=== PATIENT | male | born 1970 | race Caucasian/White ===

== ENCOUNTER 2020-11-30 12:05 | Outpatient (CLI) | payer OTHER, SELFPAY ==
--- NOTE | ~2020-11-30 | XR_ITS ---
EXAMINATION: XR foot RT 2V DATE: 11/30/2020 12:19 INDICATION: Other specified soft tissue disorders. TECHNIQUE: 2 views of right foot were obtained. COMPARISON: None. FINDINGS: Bone alignment is normal. No fracture. There is mild osteoarthritis of first metatarsophala ngeal joint, first interphalangeal joint, and some of the midfoot joints. IMPRESSION: 1. Mild polyarticular osteoarthritis. Reviewed, dictated and finalized at location A.
== END 2020-11-30 12:06 | disposition home or self-care (01) ==
PROVIDERS: PCP Internal Medicine; Visit Provider Nurse Practitioner
DX: M19.071 Primary osteoarthritis, right ankle and foot (principal)
CPT/HCPCS: 73620

== ENCOUNTER 2020-12-31 11:36 | Outpatient (CLI) | payer OTHER, SELFPAY ==
--- NOTE | ~2020-12-31 | US_ITS ---
EXAMINATION: US venous doppler [facility] DATE: 12/31/2020 12:06 INDICATION: Right lower limb swelling. TECHNIQUE: Grayscale ultrasound images without and with compression and Doppler ultrasound images of the bilateral lower extremity veins were obtained. COMPARISON: Ultrasound 04/06/2015 FINDINGS: The visualized portions of right common femoral vein, profunda (deep) femoral vein, femoral vein, pop liteal vein, peroneal veins, posterior tibial veins, and greater saphenous vein outflow are patent. The visualized portions of left common femoral vein, profunda femoral vein, femoral vein, popliteal v ein, peroneal veins, posterior tibial veins, and greater saphenous vein outflow are patent. IMPRESSION: 1. No deep venous thrombosis. Reviewed, dictated and finalized at location A.
== END 2020-12-31 11:37 | disposition home or self-care (01) ==
PROVIDERS: PCP Internal Medicine; Visit Provider Nurse Practitioner
DX: R60.0 Localized edema (principal)
CPT/HCPCS: 93970

== ENCOUNTER 2021-01-05 13:27 | Outpatient (CLI) | payer OTHER, SELFPAY ==
--- NOTE | 2021-01-05 13:36 | ECHO_ITS ---
Patient Info Name: Leonel Vanessa Age: 50 years : 1970 Gender: Male Ht: 72 in Wt: 327 lbs BSA: 2.81 m2 HR: 80 bpm BP: 156 / 91 mmHg Technical Quality: Good Exam Date: 01/05/2021 1:47 PM Exam Location: [facility] Pulmonary Patient Status: Outpatient Admit Date: 01/05/2021 Staff Ordering Physician: Corrie Zamarripa NP Remelt Worker: DEVANG Attending Provider: Corrie Zamarripa NP Referring Physician: Dallin SUTHERLAND; Exam Type: CA echo doppler color flow Study Info Indications R60.0 - Localized edema Complete two-dimensional, color flow and Doppler transthoracic echocardiogram is performed. Summary 1. Complete two-dimensional, color flow and Doppler transthoracic echocardiogram is performed. 2. Left ventricular chamber dimension is normal. 3. Left ventricular systolic function is normal, estimated at 55-60%. 4. The left ventricular diastolic function is normal. 5. E/e' 7 is not elevated. 6. No pulmonary hypertension, estimated pulmonary arterial systolic pressure is 21 mmHg. Left Ventricle E/e' 7 is not elevated. Left ventricular chamber dimension is normal. Left ventricular systolic function is normal, estimated at 55-60%. The left ventricular diastolic function is normal. Right Ventricle Right ventricular chamber dimension is normal. Right ventricular systolic function is normal. Left Atria Left atrial chamber dimension is normal. Right Atria Right atrial chamber dimension is normal. Aortic Valve The aortic valve is trileaflet. There is no aortic valve stenosis. There is no aortic valve regurgitation. Pulmonic Valve There is no pulmonic regurgitation. Mitral Valve There is no mitral valve stenosis. There is no mitral valve regurgitation. Tricuspid Valve There is no tricuspid valve regurgitation. No pulmonary hypertension, estimated pulmonary arterial systolic pressure is 21 mmHg. Pericardium/Pleural There is no pericardial effusion. Inferior Vena Cava Normal inferior vena cava with >50% collapse upon inspiration consistent with normal right atrial pressure, 5 mmHg. Aorta The aortic root size at the sinus of Valsalva is normal. Left Ventricular Outflow Tract Name Value Normal LVOT 2D LVOT Diameter 2.3 cm LVOT Doppler LVOT Peak Gradient 4 mmHg LVOT Mean Gradient 2 mmHg LVOT VTI 22 cm LVOT VTI/AV VTI Ratio 0.8 LVOT Stroke Volume 92 ml LVOT CO 17.9 l/min LVOT CI 6.4 l/min/m2 Pulmonic Valve Name Value Normal PV Doppler PV Peak Gradient 2 mmHg Mitral Valve Name Value Normal
== END 2021-01-05 13:28 | disposition home or self-care (01) ==
PROVIDERS: PCP Internal Medicine; Visit Provider Nurse Practitioner
DX: I45.10 Unspecified right bundle-branch block (principal); R60.0 Localized edema
CPT/HCPCS: 93306

== ENCOUNTER 2021-12-09 01:25 | Day surgery (SDC) | payer OTHER, SELFPAY ==
[2021-11-19 14:31] VITALS: BMI 46.8
[2021-12-09 09:03] VITALS: BP 145/81; PULSE 103; RESP 20; TEMP 36.4; O2SAT 96
[2021-12-09] MEDS: LACTATED RINGERS 1,000 ML 150 ML IV CONT (09:14)
--- NOTE | 2021-12-09 09:31 | PM.HPGS ---
History of Present Illness History of Present Illness Consent: Risks, benefits, and alternatives have been discussed and questions answered. Patient agrees to proceed with procedure. Chief complaint: hx of colon polyps Narrative: Leonel Vanessa is a 51 year old male Referred for colon cancer screening. He had 2 polyps removed about 5 years ago. Review of Systems Review of Systems: All systems reviewed & are unremarkable except as noted in HPI and below PMFSH Past Medical History Medical History Cholecystitis Depression Depression with anxiety Family history of diabetes mellitus GERD (gastroesophageal reflux disease) Heart murmur SHAY (obstructive sleep apnea) Other testicular hypofunction TMJ click Vitamin D deficiency Surgical History Surgical History History of cholecystectomy Family History Family History Sibling Diabetes mellitus Mother Cerebrovascular accident Father Family history of lung cancer Social History Social History Smoking packs per day: 1 Smoking cigarettes per day: 20.0 Years smoked: 3 Smoking pack-years: 3.00 Smoking status: Former smoker Tobacco type: cigarettes Second hand tobacco smoke exposure: Yes Smoking end date: 07/31/09 Alcohol intake: current Drinks per week: 21 Alcohol use details: 3-4 beers daily Substance use: never Substance use type: does not use Other substance usage details: edibles occasionally to help with pain Living arrangements: with family Spiritual care concerns: No Meds Home Medications and Allergies Home Medications Medication Instructions Recorded Confirmed Type cholecalciferol (vitamin D3) 25 1,000 unit PO DAILY 06/11/19 11/19/21 History mcg (1,000 unit) capsule lactobacillus combination no.8 3 3,000 mmu cells PO DAILY 06/11/19 11/19/21 History billion cell capsule cctmeudt-consenoj-dozxo acid 400 1 tablet PO DAILY tablet 06/11/19 11/19/21 History mcg-vit K 20 mcg-lycop 300 mcg tablet omega-3 fatty acids 1,000 mg 1,000 mg PO DAILY 06/11/19 11/19/21 History capsule potassium gluconate 595 mg (99 mg) 595 mg PO DAILY 06/11/19 11/19/21 History tablet famotidine 20 mg tablet 20 mg PO PRN PRN 11/16/20 11/19/21 History polyethylene glycol 3350 17 gram 17 g PO PRN PRN 11/16/20 11/19/21 History oral powder packet bupropion HCl 150 mg tablet,12 hr 150 mg PO BID 90 Days #180 tablet 11/04/21 11/19/21 Rx sustained-release semaglutide 0.25 mg SUBCUT WEEKLY #1.5 ml 11/18/21 11/19/21 Rx semaglutide 1 mg/dose (4 mg/3 mL) 1 mg SUBCUT WEEKLY #3 ml 11/18/21 11/19/21 Rx subcutaneous pen injector semaglutide 2 mg/dose (8 mg/3 mL) 2 mg SUBCUT WEEKLY #3 ml 11/18/21 11/19/21 Rx subcutaneous pen injector sertraline 25 mg tablet 25 mg PO DAILY #30 tablet 11/18/21 11/19/21 Rx Allergies Allergy/AdvReac Type Severity Reaction Status Date / Time No Known Allergies Allergy Verified 12/09/21 09:01 Vital Signs Vital Signs - 24 hr 12/09/21 09:03 Temperature 36.4 C L Pulse Rate 103 H Respiratory Rate 20 Blood Pressure 145/81 H Pulse Oximetry 96 Exam Resp: Auscultation: clear to auscultation bilaterally Cardio: Rate: regular rate Rhythm: regular rhythm GI: GI Palp: Yes Soft to palpation and No Tenderness to palpation present (GI) Assessment and Plan Assessment and plan (1) Colon cancer screening: Code(s): Z12.11 - Encounter for screening for malignant neoplasm of colon Status: Acute Assessment and Plan: Colonoscopy with possible biopsy or polypectomy or cautery or injection of substances.
--- NOTE | 2021-12-09 09:55 | WPDANESEPPF ---
Anes - Initial Pre Proc Eval Procedure: Operation Date: 12/09/21 10:15 Proposed Procedures p Screening Colonoscopy - Yassine Billingsley MD Date/Time: 12/09/21 09:55 Surgeon: Yassine Billingsley MD Pre Op Diagnosis: hx of colon polyps Patient Data Age: 51 Gender: M Height: 1.83 m Weight: 151.4 kg Last Vital Signs Temp 97.5 F L 12/09/21 09:03 Pulse 103 H 12/09/21 09:03 Resp 20 12/09/21 09:03 BP 145/81 H 12/09/21 09:03 Pulse Ox 96 12/09/21 09:03 Allergies Allergy/AdvReac Type Severity Reaction Status Date / Time No Known Allergies Allergy Verified 12/09/21 09:01 Home Medications Medication Instructions Recorded Confirmed Type cholecalciferol (vitamin D3) 25 1,000 unit PO DAILY 06/11/19 11/19/21 History mcg (1,000 unit) capsule lactobacillus combination no.8 3 3,000 mmu cells PO DAILY 06/11/19 11/19/21 History billion cell capsule vojgykya-wqluqpnk-rzuiy acid 400 1 tablet PO DAILY tablet 06/11/19 11/19/21 History mcg-vit K 20 mcg-lycop 300 mcg tablet omega-3 fatty acids 1,000 mg 1,000 mg PO DAILY 06/11/19 11/19/21 History capsule potassium gluconate 595 mg (99 mg) 595 mg PO DAILY 06/11/19 11/19/21 History tablet famotidine 20 mg tablet 20 mg PO PRN PRN 11/16/20 11/19/21 History polyethylene glycol 3350 17 gram 17 g PO PRN PRN 11/16/20 11/19/21 History oral powder packet bupropion HCl 150 mg tablet,12 hr 150 mg PO BID 90 Days #180 tablet 11/04/21 11/19/21 Rx sustained-release semaglutide 0.25 mg SUBCUT WEEKLY #1.5 ml 11/18/21 11/19/21 Rx semaglutide 1 mg/dose (4 mg/3 mL) 1 mg SUBCUT WEEKLY #3 ml 11/18/21 11/19/21 Rx subcutaneous pen injector semaglutide 2 mg/dose (8 mg/3 mL) 2 mg SUBCUT WEEKLY #3 ml 11/18/21 11/19/21 Rx subcutaneous pen injector sertraline 25 mg tablet 25 mg PO DAILY #30 tablet 11/18/21 11/19/21 Rx Patient hx anesthesia problems: none Family hx anesthesia problems: none Results Review: All pre-operative results and documents have been reviewed as part of the pre-operative evaluation. [facility] Past Medical History Medical History Cholecystitis Depression Depression with anxiety Family history of diabetes mellitus GERD (gastroesophageal reflux disease) Heart murmur SHAY (obstructive sleep apnea) Other testicular hypofunction TMJ click Vitamin D deficiency Surgical History Surgical History History of cholecystectomy Family History Family History Sibling Diabetes mellitus Mother Cerebrovascular accident Father Family history of lung cancer Social History Social History Smoking packs per day: 1 Smoking cigarettes per day: 20.0 Years smoked: 3 Smoking pack-years: 3.00 Smoking status: Former smoker Tobacco type: cigarettes Second hand tobacco smoke exposure: Yes Smoking end date: 07/31/09 Alcohol intake: current Drinks per week: 21 Alcohol use details: 3-4 beers daily Substance use: never Substance use type: does not use Other substance usage details: edibles occasionally to help with pain Living arrangements: with family Spiritual care concerns: No Anes - Eval Final PreProcedure Day of Procedure 12/09/21 09:55 Patient weight: morbidly obese Heart: regular rate and rhythm Lungs: clear to auscultation Airway: Mallampati scale class III Neurological: alert and oriented Last oral intake: >/= 8 hours ASA classification: III Emergent: no Anesthetic plan: proceed Anesthesia type and monitoring: general GIVS and standard monitoring Results Review: All pre-operative results and documents have been reviewed as part of the pre-operative evaluation. Informed Consent: The patient's anesthetic plan and its attendant risks and benefits were discussed with the patient/family/POA. [facility]
[2021-12-09 10:21] VITALS: BP 130/80; PULSE 93; RESP 20; O2SAT 98
[2021-12-09 10:31] VITALS: BP 137/79; PULSE 88; RESP 18; O2SAT 98
[2021-12-09 10:41] VITALS: BP 137/85; PULSE 84; RESP 16; O2SAT 98
== END 2021-12-09 10:51 | disposition home or self-care (01) ==
PROVIDERS: PCP Internal Medicine; Visit Provider Internal Medicine Gastroenterology
PROC: 0DJD8ZZ Inspection of Lower Intestinal Tract, Via Natural or Artificial Opening Endoscopic (ICD-10-PCS; CPT 45378; principal; 2021-12-09 10:15)
DX: Z12.11 Encounter for screening for malignant neoplasm of colon (principal); D12.5 Benign neoplasm of sigmoid colon; D12.2 Benign neoplasm of ascending colon; K63.5 Polyp of colon; F41.8 Other specified anxiety disorders; K21.9 Gastro-esophageal reflux disease without esophagitis; G47.33 Obstructive sleep apnea (adult) (pediatric); E55.9 Vitamin D deficiency, unspecified; Z87.891 Personal history of nicotine dependence; E66.01 Morbid (severe) obesity due to excess calories; Z68.42 Body mass index [BMI] 45.0-49.9, adult
CPT/HCPCS: 45380; 88305; J2704; J7120

== ENCOUNTER 2023-01-06 08:40 | Outpatient (CLI) | payer OTHER, SELFPAY ==
[2023-01-06 12:10] LABS: Basophils Absolute Auto 0.1 K/mm3 (0.0-0.1); Basophils Percent Auto 0.7 % (0.2-1.2); Eosinophils Absolute Auto 0.1 K/mm3 (0-0.3); Eosinophils Percent Auto 1.6 % (0-4.4); Hematocrit 45.6 % (42.0-52.0); Hemoglobin 14.8 g/dL (14.0-18.0); Immature Granulocyte Absolute 0.02 K/mm3 (0.00-0.031); Immature Granulocyte Percent A 0.3 % (0-0.5); Lymphocytes Absolute Auto 1.77 K/mm3 (0.9-3.2); Lymphocytes Percent Auto 23.9 % (18.3-44.2); Mean Corpuscular HGB Conc 32.5 g/dl (32-36); Mean Corpuscular Hemoglobin 30.5 pg (26-34); Mean Platelet Volume 10.3 fl (7.4-10.4); Monocytes Absolute Auto 0.6 K/mm3 (0.1-0.6); Monocytes Percent Auto 8.4 % (2.6-8.5); Neutrophils Absolute Auto 4.8 K/mm3 (1.3-6.7); Neutrophils Percent Auto 65.1 % (45.5-73.1); Platelet Count Result 250 k/mm3 (150-375); Red Blood Count 4.85 M/mm3 (4.6-6.20); Red Cell Distribution Width 13.5 % (11.5-14.5); White Blood Count 7.4 K/mm3 (4.5-10.0)
[2023-01-06 12:35] LABS: Alanine Aminotransferase 121 U/L (6-50); Albumin Level 4.5 g/dL (3.5-5.1); Alkaline Phosphatase 77 U/L (38-126); Anion Gap 7 mmol/L (8-16); Aspartate Amino Transferase 110 U/L (17-59); Bilirubin,Total 0.6 mg/dL (0.2-1.3); Blood Urea Nitrogen 17 mg/dL (9-20); Calcium 8.9 mg/dL (8.4-10.2); Carbon Dioxide 30 mmol/L (22-30); Chloride 102 mmol/L (98-107); Cholesterol 160 mg/dL (0-200); Estimated Glomerular Filt Rate > 60; Glucose 95 mg/dL (65-110); HDL Direct 51 mg/dL; Potassium 4.7 mmol/L (3.4-5.0); Sodium 139 mmol/L (137-145); Triglycerides 98 mg/dL (<150)
[2023-01-06 12:46] LABS: LDL Cholesterol Direct 82 mg/dL
[2023-01-06 12:56] LABS: Prostate Specific Antigen 0.7 ng/mL (< OR = 4.0)
[2023-01-06 13:23] LABS: Hemoglobin A1C 5.4 % (<5.7)
== END 2023-01-06 08:41 | disposition home or self-care (01) ==
LOC: ANHGOSHLAB 08:40
PROVIDERS: PCP Internal Medicine; Visit Provider Nurse Practitioner
DX: Z12.5 Encounter for screening for malignant neoplasm of prostate (principal); Z13.220 Encounter for screening for lipoid disorders; Z13.29 Encounter for screening for other suspected endocrine disorder; Z83.3 Family history of diabetes mellitus
CPT/HCPCS: 36415; 80053; 80061; 83036; 84153; 85025; G0103

== ENCOUNTER 2023-01-10 15:12 | Outpatient (CLI) | payer OTHER, SELFPAY ==
[2023-01-10 17:09] LABS: Iron 89 ug/dL (49-181)
[2023-01-10 17:23] LABS: Percent Iron Saturation 24 % (20-50)
[2023-01-10 17:36] LABS: Hepatitis B Surface Antigen Negative (Negative)
[2023-01-10 17:40] LABS: HIV 1/2 Ab P24 Ag Result Negative (Negative)
[2023-01-10 17:53] LABS: Hepatitis C Virus Antibody Negative (Negative)
== END 2023-01-10 15:13 | disposition home or self-care (01) ==
LOC: ANHGOSHLAB 15:14
PROVIDERS: PCP Internal Medicine; Visit Provider Nurse Practitioner
DX: R74.01 Elevation of levels of liver transaminase levels (principal)
CPT/HCPCS: 36415; 83540; 83550; 84443; 86703; 86803; 87340; G0432

== ENCOUNTER 2023-02-02 15:27 | Outpatient (CLI) | payer OTHER, SELFPAY ==
[2023-02-05 17:31] LABS: Immunoglobulin A 235 mg/dL (47-310); TTG IGA AB <1.0 U/mL (<15.0)
== END 2023-02-02 15:28 | disposition home or self-care (01) ==
LOC: ANHGOSHLAB 15:28
PROVIDERS: PCP Internal Medicine; Visit Provider Nurse Practitioner
DX: R74.01 Elevation of levels of liver transaminase levels (principal)
CPT/HCPCS: 36415; 82784; 86364

== ENCOUNTER 2023-02-09 09:09 | Outpatient (CLI) | payer OTHER, SELFPAY ==
--- NOTE | ~2023-02-09 | US_ITS ---
EXAMINATION: US abdomen limited DATE: 02/09/2023 09:40 INDICATION: Transaminitis TECHNIQUE: Multiple grayscale and Doppler ultrasound images of the abdomen were obtained. COMPARISON: 09/13/2018 FINDINGS: Bowel gas obscures visualization of the pancreas The liver demonstrates increased echogenic ity, heterogenous echotexture, and decreased through transmission. No surface nodularity. Normal hepa topetal flow in the main portal vein. Changes of cholecystectomy are noted. The normal common bile du ct measures 7 mm. IMPRESSION: 1. Diffuse hepatic steatosis. Reviewed, dictated and finalized at location L.
== END 2023-02-09 09:10 | disposition home or self-care (01) ==
PROVIDERS: PCP Internal Medicine; Visit Provider Nurse Practitioner
DX: R74.01 Elevation of levels of liver transaminase levels (principal); K76.0 Fatty (change of) liver, not elsewhere classified
CPT/HCPCS: 76705

== ENCOUNTER 2023-05-11 15:27 | Outpatient (CLI) | payer OTHER, SELFPAY ==
[2023-05-11 19:20] LABS: Alanine Aminotransferase 105 U/L (6-50); Albumin Level 4.5 g/dL (3.5-5.1); Alkaline Phosphatase 105 U/L (38-126); Aspartate Amino Transferase 81 U/L (17-59); Bilirubin,Total 0.5 mg/dL (0.2-1.3)
== END 2023-05-11 15:28 | disposition home or self-care (01) ==
LOC: ANHGOSHLAB 15:29
PROVIDERS: PCP Internal Medicine; Visit Provider Nurse Practitioner
DX: R74.01 Elevation of levels of liver transaminase levels (principal)
CPT/HCPCS: 36415; 80076

== ENCOUNTER 2024-02-19 08:22 | Outpatient (CLI) | payer OTHER, SELFPAY ==
[2024-02-19 14:49] LABS: Basophils Percent Auto 0.5 % (0.2-1.2); Eosinophils Absolute Auto 0.1 K/mm3 (0-0.3); Eosinophils Percent Auto 1.2 % (0-4.4); Hematocrit 46.8 % (42.0-52.0); Hemoglobin 15.3 g/dL (14.0-18.0); Immature Granulocyte Absolute 0.01 K/mm3 (0.00-0.031); Immature Granulocyte Percent A 0.1 % (0-0.5); Lymphocytes Percent Auto 24.9 % (18.3-44.2); Mean Corpuscular HGB Conc 32.7 g/dl (32-36); Mean Corpuscular Hemoglobin 30.4 pg (26-34); Mean Platelet Volume 10.6 fl (7.4-10.4); Monocytes Absolute Auto 0.6 K/mm3 (0.1-0.6); Neutrophils Percent Auto 65.3 % (45.5-73.1); Platelet Count Result 250 k/mm3 (150-375); Red Blood Count 5.03 M/mm3 (4.6-6.20); Red Cell Distribution Width 13.7 % (11.5-14.5); White Blood Count 7.6 K/mm3 (4.5-10.0)
[2024-02-19 15:27] LABS: Alanine Aminotransferase 89 U/L (6-50); Albumin Level 4.7 g/dL (3.5-5.1); Alkaline Phosphatase 81 U/L (38-126); Anion Gap 14 mmol/L (4-12); Aspartate Amino Transferase 83 U/L (17-59); Bilirubin,Total 0.6 mg/dL (0.2-1.3); Blood Urea Nitrogen 21 mg/dL (9-20); Calcium 9.1 mg/dL (8.4-10.2); Carbon Dioxide 27 mmol/L (22-30); Chloride 97 mmol/L (98-107); Estimated Glomerular Filt Rate > 60; Glucose 85 mg/dL (65-110); Potassium 4.3 mmol/L (3.4-5.0); Sodium 138 mmol/L (137-145)
[2024-02-19 15:59] LABS: Prostate Specific Antigen 0.9 ng/mL (< OR = 4.0)
[2024-02-22 15:39] LABS: Cholesterol 148 mg/dL (0-200); HDL Direct 46 mg/dL; Triglycerides 119 mg/dL (<150)
[2024-02-22 15:51] LABS: LDL Cholesterol Direct 79 mg/dL
== END 2024-02-19 08:23 | disposition home or self-care (01) ==
LOC: ANHGOSHLAB 08:23
PROVIDERS: PCP Internal Medicine; Visit Provider Nurse Practitioner
DX: R74.01 Elevation of levels of liver transaminase levels (principal); Z12.5 Encounter for screening for malignant neoplasm of prostate; Z13.220 Encounter for screening for lipoid disorders; Z13.29 Encounter for screening for other suspected endocrine disorder
CPT/HCPCS: 36415; 80053; 80061; 84153; 85025; G0103

== ENCOUNTER 2024-08-12 10:14 | Outpatient (CLI) | payer OTHER, SELFPAY ==
[2024-08-12 13:46] LABS: Basophils Percent Auto 0.5 % (0.2-1.2); Eosinophils Absolute Auto 0.1 K/mm3 (0-0.3); Eosinophils Percent Auto 1.3 % (0-4.4); Hematocrit 47.6 % (42.0-52.0); Hemoglobin 15.6 g/dL (14.0-18.0); Immature Granulocyte Absolute 0.02 K/mm3 (0.00-0.031); Immature Granulocyte Percent A 0.3 % (0-0.5); Lymphocytes Absolute Auto 2.43 K/mm3 (0.9-3.2); Lymphocytes Percent Auto 32.5 % (18.3-44.2); Mean Corpuscular HGB Conc 32.8 g/dl (32-36); Mean Corpuscular Hemoglobin 30.1 pg (26-34); Mean Corpuscular Volume 91.9 fl (80-100); Mean Platelet Volume 10.8 fl (7.4-10.4); Monocytes Absolute Auto 0.6 K/mm3 (0.1-0.6); Monocytes Percent Auto 7.5 % (2.6-8.5); Neutrophils Absolute Auto 4.3 K/mm3 (1.3-6.7); Neutrophils Percent Auto 57.9 % (45.5-73.1); Platelet Count Result 265 k/mm3 (150-375); Red Blood Count 5.18 M/mm3 (4.6-6.20); Red Cell Distribution Width 13.4 % (11.5-14.5); White Blood Count 7.5 K/mm3 (4.5-10.0)
[2024-08-12 14:50] LABS: Alanine Aminotransferase 134 U/L (6-50); Albumin Level 4.6 g/dL (3.5-5.1); Alkaline Phosphatase 108 U/L (38-126); Anion Gap 6 mmol/L (4-12); Aspartate Amino Transferase 147 U/L (17-59); Bilirubin,Total 0.6 mg/dL (0.2-1.3); Blood Urea Nitrogen 20 mg/dL (9-20); Calcium 9.7 mg/dL (8.4-10.2); Carbon Dioxide 31 mmol/L (22-30); Chloride 102 mmol/L (98-107); Estimated Glomerular Filt Rate > 60; Glucose 80 mg/dL (65-110); Potassium 4.9 mmol/L (3.4-5.0); Sodium 139 mmol/L (137-145)
== END 2024-08-12 10:15 | disposition home or self-care (01) ==
LOC: ANHGOSHLAB 10:15
PROVIDERS: PCP Internal Medicine; Visit Provider Nurse Practitioner
DX: R42 Dizziness and giddiness (principal); R94.31 Abnormal electrocardiogram [ECG] [EKG]
CPT/HCPCS: 36415; 80053; 84443; 85025

== ENCOUNTER 2024-09-04 07:50 | Outpatient (CLI) | payer OTHER, SELFPAY ==
--- NOTE | ~2024-09-04 | US_ITS ---
Limited Abdominal Sonogram: Real-time sonographic imaging of the right upper quadrant was performed. Clinical History: Fatty liver Findings: The liver appears echogenic, with no evidence of mass lesion or bile duct dilatation. Main portal vein demonstrates normal direction of flow. The gallbladder is absent, compatible prior marie cystectomy. The common bile duct measures 6 mm. The visualized pancreas, aorta, and IVC are unremark able. Impression: Diffuse fatty infiltration of liver. Reviewed, dictated and finalized at location M. AGE INSPECTOR Impression: Diffuse fatty infiltration of liver.
== END 2024-09-04 07:51 | disposition home or self-care (01) ==
PROVIDERS: PCP Internal Medicine; Visit Provider Nurse Practitioner Family
DX: K76.0 Fatty (change of) liver, not elsewhere classified (principal); R74.01 Elevation of levels of liver transaminase levels
CPT/HCPCS: 76705

== ENCOUNTER 2024-09-04 08:34 | Outpatient (CLI) | payer OTHER, SELFPAY ==
--- OUTSIDE RECORDS SUMMARY | 2024-09-04 08:42 | XMS_ITS | Clinical Summary ---
Author Organization [facility] Address [address] [place] [address] Phone Care Team Providers Care Grain Mixer Name Role Phone Unavailable Primary Care Provider Unavailabl e Allergies No known active allergies Medications No known medications Active Problems Problem Noted Date Diagnosed Date SHAY (obstructive sleep apnea) 02/15/2010 Overview (02/15/2010): Severe on CPAP per Dr. Wyatt Duarte. Immunizations Immunization Administration Dates Next Due (ADACEL/BOOSTRIX)(10 YR UP) TDAP VACCINE, 0.5ML, IM 02/16/2010 Family History Medical History Relation Name Comments Lung Cancer Father Stroke Maternal Grandfather Cancer Maternal Uncle no known pros fernandes Stroke Maternal Uncle Diabetes Mother Stroke Mother 63 Diabetes Sister 1 Diabetes Sister 2 Colon Cancer Neg Hx Heart Disease Neg Hx Relation Name Status Comments Father Maternal Grandfather Maternal Uncle Mother Sister 1 Sister 2 Social History Tobacco Use Types Packs/Day Years Used Date Smoking Tobacco: Every Day Cigarettes Alcohol Use Standard Drinks/Week Comments Yes 0 (1 standard drink = 0.6 oz pur e alcohol) Sex and Gender Information Value Date Recorded Sex Assigned at Not on file Legal 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 Gender Identity Not on file Sexual Orientation Not on file Last Filed Vital Signs Vital Sign Reading Time Taken Comments Blood Pressure 110/74 03/23/2010 2:51 PM CDT B/P in [place] Pulse 74 03/23/2010 2:51 PM CDT Temperature 37.1 ??C (98.8 ??F) 03/23/2010 2:51 PM CD T Respiratory Rate 18 03/23/2010 2:51 PM CDT Oxygen Saturation 98% 03/23/2010 2:51 PM CDT Inhaled Oxygen Concentration - - Weight 119.6 kg (263 lb 9.6 oz) 03/23/2010 2:51 PM CDT Height 182.9 cm (6') 02/16/2010 1:37 PM CDT Body Mass Index 35.75 02/16/2010 1:37 PM CDT Plan of Treatment Health Maintenance Due Date Last Done Comments HEPATITIS B VACCINES (1 of 3 - 19+ 3-dose series) 07/31 COLORECTAL SCREENING 2016 Colorectal Cancer Screening 2016 FIT-DNA Q 3 years 2016 FIT/FOBT Q 1 year 2016 Flex Sig/CT Colonography Q 5 years 2016 DTAP/TDAP/TD VACCINES (2 - Td or Tdap) 02/17/2020 ZOSTER VACCINE (1 of 2) 2021 INFLUENZA VACCINE (#1) 2024 Insurance
[2024-09-04 14:19] LABS: Prothrombin Time 13.9 Seconds (11.1-14.7)
[2024-09-04 15:15] LABS: Hepatitis B Surface Antigen Negative (Negative)
[2024-09-04 15:21] LABS: HAV RESULT Negative (Negative); Hepatitis B Core IgM Result Negative (Negative)
[2024-09-04 15:33] LABS: Hepatitis B Surface Anti Res Negative; Hepatitis C Virus Antibody Negative (Negative)
[2024-09-04 16:09] LABS: Iron 111 ug/dL (49-181)
[2024-09-04 16:19] LABS: Percent Iron Saturation 29 % (20-50)
[2024-09-05 07:18] LABS: GGT 31 U/L (3-95)
[2024-09-05 09:38] LABS: Hepatitis A Antibody Total REACTIVE (NON-REACTIVE)
[2024-09-05 15:58] LABS: Ceruloplasmin 27 mg/dL (14-30)
[2024-09-06 11:27] LABS: Alpha Fetoprotein Tumor Marker 4.2 ng/mL (<6.1)
[2024-09-06 12:17] LABS: Anti Nuclear Antibody Pattern Cytoplasmic; Anti Nuclear Antibody Titer 1:40 titer
[2024-09-07 09:58] LABS: LKM 1 Antibody <=20.0 U (<=20.0)
[2024-09-07 21:48] LABS: Actin Antibody (IgG) <20 U (<20)
[2024-09-11 15:49] LABS: ALT 137 U/L (9-46); Alpha-2-Macroglobulin 316 mg/dL (106-279); Apolipoprotein A1 146 mg/dL (94-176); Fibrosis Score 0.35; Fibrosis Stage F1-F2; GGT 33 U/L (3-95); Haptoglobin 125 mg/dL (43-212); Necroinflammat Act Grade A3; Reference ID 5331275; Total Bilirubin 0.3 mg/dL (0.2-1.2)
[2024-09-18 09:03] LABS: Mitochondrial (M2) Ab (IgG) 94.2 U
== END 2024-09-04 08:35 | disposition home or self-care (01) ==
LOC: ANHGOSHLAB 08:36
PROVIDERS: PCP Internal Medicine; Visit Provider Nurse Practitioner Family
DX: R74.01 Elevation of levels of liver transaminase levels (principal); K76.0 Fatty (change of) liver, not elsewhere classified
CPT/HCPCS: 36415; 80074; 81596; 82105; 82390; 82728; 82977; 83520; 83540; 83550; 85610; 86038; 86039; 86364; 86376; 86706; 86708

== ENCOUNTER 2024-09-13 16:01 | Outpatient (CLI) | payer OTHER, SELFPAY ==
--- OUTSIDE RECORDS SUMMARY | 2024-09-13 16:03 | XMS_ITS | Patient Health Record ---
Author Organization [facility] [employer] Address [address] [place] [address] Care Team Providers Care Transportation Coordinator Name Role Phone Bala Avila DO Primary Care Provider Shant Hare Unavailable [phone] Migration, Provider Unavailable Unavailable Allergies No Known Allergies Reason For Referral No Information Medications Medication SIG (Take, Route, Frequency, Duration) Notes Start Date End Date Status buPROPion HCl ER (XL) 150 MG 1 tablet in the morning Orally Once a day for 90 days 08/19/2024 Active Sertraline HCl 100 MG TAKE 2 TABLETS BY MOUTH EVERY DAY Oral Active Armodafinil 50 MG 1 tablet Orally Once a day for 90 days dose reduced 08/19/2024 Active Immunizations Vaccine Route Administration Date Status Comme nts Tdap Unknown 02/16/2010 Administered Pfizer [employer]ion[employer] Covid-19 Vac cine 2nd dose Unknown 10/01/2020 Administered Pfizer [employer] Covid-19 Vac cine 2nd dose Unknown 10/22/2020 Administered Novel [id number], preservative free Unknown 05/21/2017 Administered Social History Tobacco Use: Social History Observation Description Date Details (start date - stop date) Former Smoker 10/29/2006 - 02/28/2011 Sex Assigned At : Social History Observation Description Sex Assigned At Male Tobacco Control (Standard) Question Answer Notes Tobacco use: Former smoker When did you start smoking? 10/29/2006 When did you stop smoking? 02/28/2011 How long has it been since you last smoked? Grea ter than 10 years AUDIT-C (Standard) Question Answer Notes Points 6 Interpretation Positive Did you have a drink contain ing alcohol in the past year? Yes How often did you have six o r more drinks on one occasion in the past year? 2 to 3 times per week (3 points) How many drinks did you have on a typical day when you were drinking in the past year? 1 or 2 drinks (0 point) How often did you have a dri nk containing alcohol in the past year? 2 to 3 times a week (3 points) Problems Problem Type SNOMED Code ICD Code Onset Dates Problem Status W/U Status Risk Notes Problem Generalized anxiety disorder (79377618) ED (generalized anxiety disorder) (F41.1) Active confirmed Problem 95224616 Obstructive sleep apnea (G47.33) Active confirmed Problem 858220 Moderate major depression (F32.1) Active confirmed Vital Signs Heart Rate 102 /min 08/19/2024 Height-cm 180.34 cm 08/19/2024 Blood pressure diastolic 91 mm Hg 08/19/2024 Weight-kg 166.92 kg 08/19/2024 Height 71 in 08/19/2024 Blood pressure systolic 175 mm Hg 08/19/2024 Weight 368 lbs 08/19/2024 BMI 51.32 kg/m2 08/19/2024 Encounters Encounter Location Date Provider Diagnosis [facility] [employer] [address] [address] 04/26/2024 Shant Janel Moderate major depression F32.1 ; Obstructive sleep apnea G47.33 and ED (generalized anxiety disorder) F41.1 [facility] [employer] [address] [address] 05/20/2024 Shant Janel Moderate major depression F32.1 ; Obstructive sleep apnea G47.33 and ED (generalized anxiety disorder) F41.1 [facility] [employer] [address] [address] 08/19/2024 Shant Janel Moderate major depression F32.1 ; Obstructive sleep apnea G47.33 and ED (generalized anxiety disorder) F41.1 [facility] [employer] [address] [address] 12/16/2023 Provider Migration [facility] [employer] [address] [address] 12/17/2023 Provider Migration [facility] [employer] [address] [address] 09/04/2024 Shant Islas [facility] [employer] [address] [place] [address] 09/04/2024 Shant Islas [facility] [address] [place] [address] 09/13/2024 Shatn Islas Assessments Encounter Date Diagnosis (ICD Code) Assessment Notes Treatment Notes Treatment Clinical Notes Section Notes 05/20/2024 Moderate major depression (ICD-10 - F32.1) Difficulty Focusing and Excessive Phone Use - Assessment: Patient reports a 50-60% improvement in focus since starting armodafinil. He still experiences difficulty focusing in the evenings, particularly on TV and phone use, which causes tension with his . - Plan: - Increase armodafinil to 200 mg in the morning - Encourage the patient to be mindful of phone use when with his Sleep Apnea - Assessment: Patient had a sleep study either last year or the year before and reports waking up periodically due to snoring. He mentions having more vivid and constant dreams since starting the medication. - Plan: - Continue armodafinil for sleep issues and excessive tiredness - Monitor the patient's sleep quality and consider a follow-up sleep study if needed Anxiety and Depression - Assessment: Patient's PHQ-9 score has improved from 14 to 8, indicating progress in managing depression. He denies suicidal ideation and reports no significant changes in mood. Initially felt jittery on the medication, but this has subsided. - Plan: - Continue sertraline and monitor for any changes in mood or depression - Reassess the need for adjustments in medication during follow-up visits Transient Episodes of Blacking Out - Assessment: Patient experiences infrequent episodes of everything going black for an instant when turning his head, especially when tired. He has not reported this to his primary care physician (PCP) yet. - Plan: - Encourage the patient to discuss this issue with his PCP for further evaluation Neck Pain and Dizziness - Assessment: Patient reports occasional neck pain and dizziness, particularly when lying flat at the gym. He sleeps in an adjustable bed and is not used to lying completely flat. Mentions his neck was hurting the night before the appointment. - Plan: - Recommend the patient to discuss these symptoms with his PCP for further evaluation and possible referral to a specialist if needed Follow-up - Plan: - Schedule a follow-up appointment in 3 months to monitor the patient's progress and adjust medications if necessary - Prescribe a 90-day supply of armodafinil at the new dosage 08/19/2024 Moderate major depression (ICD-10 - F32.1) 04/26/2024 Obstructive sleep apnea (ICD-10 - G47.33) Electronic Prior Authorization was requested for Armodafinil 150 MG Tablet. Provider can order medication once approval received. Obstructive Sleep Apnea (SHAY) - Assessment: Patient has a history of SHAY for 15 years with poor sleep quality despite CPAP compliance. Last sleep study was in 2022, with around 100 obstructive sleep episodes per hour during the study. - Plan: - Continue CPAP therapy and monitor for improvement in sleep quality. - Reevaluate the need for a follow-up sleep study if no improvement is observed. Moderate Depression - Assessment: Patient is currently on sertraline with a PHQ-9 score of 14, indicating moderate depression. The patient reports partial response to sertraline, with improved anxiety but persistent depressive symptoms. - Plan: - Consider adding Bupropion or Modafinil to the treatment regimen if the patient's insurance covers it. - Reassess the patient's depression symptoms and response to treatment in three weeks. Attention Deficit Hyperactivity Disorder (ADHD) - Assessment: Patient reports difficulty focusing, which could be related to depression, ADHD, or sleep apnea. Patient mentions issues with concentration and being easily distracted by phone games. - Plan: - Trial Modafinil for 30 to 60 days to address potential mild ADHD and focus issues related to sleep apnea. - Perform ADHD testing after the trial period. - If depression and ADHD symptoms persist, consider other treatment options. Cannabis Use - Assessment: Patient reports using cannabis gummies every evening to help with sleep, consuming approximately 15mg per dose. - Plan: - Encourage the patient to discontinue cannabis use, as it can negatively affect working memory and complicate the clinical picture. - Inform the patient that stimulant medications for ADHD cannot be prescribed if they continue using cannabis. - Patient agreed to discontinue use. Medication Management - Assessment: Patient has a sufficient supply of sertraline (90-day supply) and is connected to the [employer] [facility] for medication management. - Plan: - Send the prescription for Modafinil to the pharmacy ([facility]). - Monitor the patient's response to the medication. - Schedule a follow-up appointment in three weeks to reassess the patient's symptoms and treatment plan. Other Medical History - Assessment: Patient had gallbladder removal before the pandemic (2015 or 2016). Patient reports slightly elevated liver enzymes. - Plan: Continue to encourage reduction in alcohol intake to improve liver function. Alcohol Use - Assessment: Patient reports drinking a beer or two here and there, which is a reduction from previous consumption levels. - Plan: Continue to encourage reduction in alcohol intake to improve liver function. 04/26/2024 Moderate major depression (ICD-10 - F32.1) Obstructive Sleep Apnea (SHAY) - Assessment: Patient has a history of SHAY for 15 years with poor sleep quality despite CPAP compliance. Last sleep study was in 2022, with around 100 obstructive sleep episodes per hour during the study. - Plan: - Continue CPAP therapy and monitor for improvement in sleep quality. - Reevaluate the need for a follow-up sleep study if no improvement is observed. Moderate Depression - Assessment: Patient is currently on sertraline with a PHQ-9 score of 14, indicating moderate depression. The patient reports partial response to sertraline, with improved anxiety but persistent depressive symptoms. - Plan: - Consider adding Bupropion or Modafinil to the treatment regimen if the patient's insurance covers it. - Reassess the patient's depression symptoms and response to treatment in three weeks. Attention Deficit Hyperactivity Disorder (ADHD) - Assessment: Patient reports difficulty focusing, which could be related to depression, ADHD, or sleep apnea. Patient mentions issues with concentration and being easily distracted by phone games. - Plan: - Trial Modafinil for 30 to 60 days to address potential mild ADHD and focus issues related to sleep apnea. - Perform ADHD testing after the trial period. - If depression and ADHD symptoms persist, consider other treatment options. Cannabis Use - Assessment: Patient reports using cannabis gummies every evening to help with sleep, consuming approximately 15mg per dose. - Plan: - Encourage the patient to discontinue cannabis use, as it can negatively affect working memory and complicate the clinical picture. - Inform the patient that stimulant medications for ADHD cannot be prescribed if they continue using cannabis. - Patient agreed to discontinue use. Medication Management - Assessment: Patient has a sufficient supply of sertraline (90-day supply) and is connected to the [employer] [facility] for medication management. - Plan: - Send the prescription for Modafinil to the pharmacy ([facility]). - Monitor the patient's response to the medication. - Schedule a follow-up appointment in three weeks to reassess the patient's symptoms and treatment plan. Other Medical History - Assessment: Patient had gallbladder removal before the pandemic (2015 or 2016). Patient reports slightly elevated liver enzymes. - Plan: Continue to encourage reduction in alcohol intake to improve liver function. Alcohol Use - Assessment: Patient reports drinking a beer or two here and there, which is a reduction from previous consumption levels. - Plan: Continue to encourage reduction in alcohol intake to improve liver function. 04/26/2024 ED (generalized anxiety disorder) (ICD-10 - F41.1) Obstructive Sleep Apnea (SHAY) - Assessment: Patient has a history of SHAY for 15 years with poor sleep quality despite CPAP compliance. Last sleep study was in 2022, with around 100 obstructive sleep episodes per hour during the study. - Plan: - Continue CPAP therapy and monitor for improvement in sleep quality. - Reevaluate the need for a follow-up sleep study if no improvement is observed. Moderate Depression - Assessment: Patient is currently on sertraline with a PHQ-9 score of 14, indicating moderate depression. The patient reports partial response to sertraline, with improved anxiety but persistent depressive symptoms. - Plan: - Consider adding Bupropion or Modafinil to the treatment regimen if the patient's insurance covers it. - Reassess the patient's depression symptoms and response to treatment in three weeks. Attention Deficit Hyperactivity Disorder (ADHD) - Assessment: Patient reports difficulty focusing, which could be related to depression, ADHD, or sleep apnea. Patient mentions issues with concentration and being easily distracted by phone games. - Plan: - Trial Modafinil for 30 to 60 days to address potential mild ADHD and focus issues related to sleep apnea. - Perform ADHD testing after the trial period. - If depression and ADHD symptoms persist, consider other treatment options. Cannabis Use - Assessment: Patient reports using cannabis gummies every evening to help with sleep, consuming approximately 15mg per dose. - Plan: - Encourage the patient to discontinue cannabis use, as it can negatively affect working memory and complicate the clinical picture. - Inform the patient that stimulant medications for ADHD cannot be prescribed if they continue using cannabis. - Patient agreed to discontinue use. Medication Management - Assessment: Patient has a sufficient supply of sertraline (90-day supply) and is connected to the [employer] [facility] for medication management. - Plan: - Send the prescription for Modafinil to the pharmacy ([facility]). - Monitor the patient's response to the medication. - Schedule a follow-up appointment in three weeks to reassess the patient's symptoms and treatment plan. Other Medical History - Assessment: Patient had gallbladder removal before the pandemic (2015 or 2017). Patient reports slightly elevated liver enzymes. - Plan: Continue to encourage reduction in alcohol intake to improve liver function. Alcohol Use - Assessment: Patient reports drinking a beer or two here and there, which is a reduction from previous consumption levels. - Plan: Continue to encourage reduction in alcohol intake to improve liver function. 05/20/2024 Obstructive sleep apnea (ICD-10 - G47.33) Electronic Prior Authorization was requested for Armodafinil 150 MG Tablet. Provider can order medication once approval received. Difficulty Focusing and Excessive Phone Use - Assessment: Patient reports a 50-60% improvement in focus since starting armodafinil. He still experiences difficulty focusing in the evenings, particularly on TV and phone use, which causes tension with his . - Plan: - Increase armodafinil to 200 mg in the morning - Encourage the patient to be mindful of phone use when with his Sleep Apnea - Assessment: Patient had a sleep study either last year or the year before and reports waking up periodically due to snoring. He mentions having more vivid and constant dreams since starting the medication. - Plan: - Continue armodafinil for sleep issues and excessive tiredness - Monitor the patient's sleep quality and consider a follow-up sleep study if needed Anxiety and Depression - Assessment: Patient's PHQ-9 score has improved from 14 to 8, indicating progress in managing depression. He denies suicidal ideation and reports no significant changes in mood. Initially felt jittery on the medication, but this has subsided. - Plan: - Continue sertraline and monitor for any changes in mood or depression - Reassess the need for adjustments in medication during follow-up visits Transient Episodes of Blacking Out - Assessment: Patient experiences infrequent episodes of everything going black for an instant when turning his head, especially when tired. He has not reported this to his primary care physician (PCP) yet. - Plan: - Encourage the patient to discuss this issue with his PCP for further evaluation Neck Pain and Dizziness - Assessment: Patient reports occasional neck pain and dizziness, particularly when lying flat at the gym. He sleeps in an adjustable bed and is not used to lying completely flat. Mentions his neck was hurting the night before the appointment. - Plan: - Recommend the patient to discuss these symptoms with his PCP for further evaluation and possible referral to a specialist if needed Follow-up - Plan: - Schedule a follow-up appointment in 3 months to monitor the patient's progress and adjust medications if necessary - Prescribe a 90-day supply of armodafinil at the new dosage 08/19/2024 Obstructive sleep apnea (ICD-10 - G47.33) 08/19/2024 ED (generalized anxiety disorder) (ICD-10 - F41.1) 05/20/2024 ED (generalized anxiety disorder) (ICD-10 - F41.1) Difficulty Focusing and Excessive Phone Use - Assessment: Patient reports a 50-60% improvement in focus since starting armodafinil. He still experiences difficulty focusing in the evenings, particularly on TV and phone use, which causes tension with his . - Plan: - Increase armodafinil to 200 mg in the morning - Encourage the patient to be mindful of phone use when with his Sleep Apnea - Assessment: Patient had a sleep study either last year or the year before and reports waking up periodically due to snoring. He mentions having more vivid and constant dreams since starting the medication. - Plan: - Continue armodafinil for sleep issues and excessive tiredness - Monitor the patient's sleep quality and consider a follow-up sleep study if needed Anxiety and Depression - Assessment: Patient's PHQ-9 score has improved from 14 to 8, indicating progress in managing depression. He denies suicidal ideation and reports no significant changes in mood. Initially felt jittery on the medication, but this has subsided. - Plan: - Continue sertraline and monitor for any changes in mood or depression - Reassess the need for adjustments in medication during follow-up visits Transient Episodes of Blacking Out - Assessment: Patient experiences infrequent episodes of everything going black for an instant when turning his head, especially when tired. He has not reported this to his primary care physician (PCP) yet. - Plan: - Encourage the patient to discuss this issue with his PCP for further evaluation Neck Pain and Dizziness - Assessment: Patient reports occasional neck pain and dizziness, particularly when lying flat at the gym. He sleeps in an adjustable bed and is not used to lying completely flat. Mentions his neck was hurting the night before the appointment. - Plan: - Recommend the patient to discuss these symptoms with his PCP for further evaluation and possible referral to a specialist if needed Follow-up - Plan: - Schedule a follow-up appointment in 3 months to monitor the patient's progress and adjust medications if necessary - Prescribe a 90-day supply of armodafinil at the new dosage 04/26/2024 Other Learning About Depression Screening material was printed Obstructive Sleep Apnea (SHAY) - Assessment: Patient has a history of SHAY for 15 years with poor sleep quality despite CPAP compliance. Last sleep study was in 2022, with around 100 obstructive sleep episodes per hour during the study. - Plan: - Continue CPAP therapy and monitor for improvement in sleep quality. - Reevaluate the need for a follow-up sleep study if no improvement is observed. Moderate Depression - Assessment: Patient is currently on sertraline with a PHQ-9 score of 14, indicating moderate depression. The patient reports partial response to sertraline, with improved anxiety but persistent depressive symptoms. - Plan: - Consider adding Bupropion or Modafinil to the treatment regimen if the patient's insurance covers it. - Reassess the patient's depression symptoms and response to treatment in three weeks. Attention Deficit Hyperactivity Disorder (ADHD) - Assessment: Patient reports difficulty focusing, which could be related to depression, ADHD, or sleep apnea. Patient mentions issues with concentration and being easily distracted by phone games. - Plan: - Trial Modafinil for 30 to 60 days to address potential mild ADHD and focus issues related to sleep apnea. - Perform ADHD testing after the trial period. - If depression and ADHD symptoms persist, consider other treatment options. Cannabis Use - Assessment: Patient reports using cannabis gummies every evening to help with sleep, consuming approximately 15mg per dose. - Plan: - Encourage the patient to discontinue cannabis use, as it can negatively affect working memory and complicate the clinical picture. - Inform the patient that stimulant medications for ADHD cannot be prescribed if they continue using cannabis. - Patient agreed to discontinue use. Medication Management - Assessment: Patient has a sufficient supply of sertraline (90-day supply) and is connected to the [employer] [facility] for medication management. - Plan: - Send the prescription for Modafinil to the pharmacy ([facility]). - Monitor the patient's response to the medication. - Schedule a follow-up appointment in three weeks to reassess the patient's symptoms and treatment plan. Other Medical History - Assessment: Patient had gallbladder removal before the pandemic (2015 or 2016). Patient reports slightly elevated liver enzymes. - Plan: Continue to encourage reduction in alcohol intake to improve liver function. Alcohol Use - Assessment: Patient reports drinking a beer or two here and there, which is a reduction from previous consumption levels. - Plan: Continue to encourage reduction in alcohol intake to improve liver function. 08/19/2024 Other Vivid Dreams and Sleep Quality - Assessment: Patient reports no issues with falling asleep or staying asleep. Vivid dreams persist, but no significant change since the last visit. Patient mentioned recent dreams about visiting childhood home and seeing father. - Plan: No changes made at this time. Elevated Liver Enzymes (ALT-AST) - Assessment: Patient's recent blood work showed elevated liver enzymes in the 140, 130 range. Possible impact from vardenafil use. - Plan: Monitor liver function closely. Repeat labs in 3 weeks at the same lab ([place]) to assess liver enzyme levels. ADHD and Food Issues - Assessment: Patient's pearl peller suggested considering Vyvanse or its generic for ADHD and food issues. Patient reports replacing alcohol consumption with eating unhealthy food. - Plan: No changes made at this time. Weight Loss and Management - Assessment: Patient has tried Ozempic and Zepbound in the past with limited success. Insurance does not cover Zepbound. Patient experienced initial success with Ozempic, losing 40 pounds, but then plateaued. - Plan: No changes made at this time. Hepatitis - Plan: Continue monitoring and managing hepatitis as needed. Elevated Blood Pressure - Assessment: Blood pressure measured at 175/91 during the visit, but patient reported normal readings (119/72) at a recent doctor's appointment. Possible elevation due to recent gym activity. - Plan: Coordinate with Dr. Tracey for better blood pressure control, as it impacts liver health. Situational Vertigo - Assessment: Patient reported almost blacking out and experiencing vertigo, especially when anxious. Patient notes it happens more when feeling anxious but not frequently. - Plan: No changes made at this time. Medication Adjustments - Plan: - Reduce modafinil dose to 100 mg and repeat labs in 3 weeks. - Consider Wellbutrin (bupropion) as an alternative to Zoloft (sertraline) if it proves effective for the patient. Continue sertraline at 200 mg for now. - Send a 50 mg prescription of modafinil to the pharmacy. - Prescribe bupropion 150 mg once daily in the morning. Follow-up - Plan: - Schedule a follow-up appointment in 4 weeks. - Have blood work done 2-3 weeks before the follow-up appointment. Plan Of Treatment Pending Test Test Name Order Date UDT 04/26/2024 Future Test Test Name Order Date Comp. Metabolic Panel (14) 08/19/2024 Next Appt Details Provider Name:Shant Song Janel , 09/16/2024 04:15:00 PM, [address], [address], [place], [address], Insurance Providers Payer Name Payer Address Payer Phone Subscriber Number Group Number Insured Name Patient Relationship to Insured Coverage Start Date Coverage End Date [facility] [address] [address] [place] [phone] [id number] DILLON TOUSSAINT Self - patient is the insured Medical (General) History Medical History History ICD Code Problems: Generalized anxiety disorder Mild recurrent major depression , Past Psychiatric History: Anxiety Disord er,Major Depressive Episode abdominal aortic aneurysm: No atrial fibrillation: No chronic fatigue syndrome: No essential tremor: No hyperlipidemia: No hypertension: No Parkinson's disease: No restless leg syndrome: No stroke: No subdural hematoma: No type 1 diabetes mellitus: No type 2 diabetes mellitus: No vitamin B12 deficiency: No vitamin D deficiency: No Surgical History Surgery Date(Month/Year) Removal of gallbladder (98723) 6
--- OUTSIDE RECORDS SUMMARY | 2024-09-13 16:03 | XMS_ITS | Clinical Summary ---
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
--- OUTSIDE RECORDS SUMMARY | 2024-09-13 16:04 | XMS_ITS ---
Author Organization [facility] [employer] [facility] Address [facility] [address] [facility] [address] [place] [address] Care Team Providers Care Soda Fountain Manager Name Role Phone Bala Avila DO Primary Care Provider Shant Hare Unavailable [phone] REASON FOR VISIT RE:Labs Social History Sex Assigned At : Social History Observation Description Sex Assigned At Male Encounters Encounter [facility] [address] [facility] [address] [place] [address] 09/04/2024 Shant Islas Plan Of Treatment Next Appt Details Provider Name:Shant Islas , 09/16/2024 04:15:00 PM, [address], [facility] [address], [place], [address], Progress Notes * DILLON TOUSSAINTDOB:1970 (54 yo M)Acc No.[id number]:09/04/2024 Patient: DILLON PAYNE :1970 A ge:54 Y S ex:Male Address:[address] [place], [address] * true * Date: Generated for Printi ng/Faxing/eTransmitting on: 0 09/13/2024 04:04 PM LOCATION AND MEASUREMENT TECHNICIAN
--- OUTSIDE RECORDS SUMMARY | 2024-09-13 16:04 | XMS_ITS ---
Author Organization [facility] [employer] [facility] Address [address] [facility] [address] [place] [address] Care Team Providers Care Yarn Dyer Name Role Phone Bala Avila DO Primary Care Provider Shant Hare Unavailable [phone] REASON FOR VISIT RE:RE:Labs Social History Sex Assigned At : Social History Observation Description Sex Assigned At Male Encounters Encounter Location Date Provider Diagnosis [facility] [address] [place] [address] 09/13/2024 Shant Islas Plan Of Treatment Next Appt Details Provider Name:Shant Islas , 09/16/2024 04:15:00 PM, [address], [place], [address], Progress Notes * DILLON TOUSSAINTDOB:1970 (54 yo M)Acc No.[id number]:09/13/2024 Patient: DILLON PAYNE :1970 A ge:54 Y S ex:Male Address:[address] [place], [address] * true * Date: Generated for Printi ng/Faxing/eTransmitting on: 0 09/13/2024 04:03 PM CRIME SCENE PHOTOGRAPHER
--- OUTSIDE RECORDS SUMMARY | 2024-09-13 16:04 | XMS_ITS ---
Author Organization [facility] [employer] [facility] Address [address] [place] [address] Care Team Providers Care Web Methods Developer Name Role Phone Bala Avila DO Primary Care Provider Shant Hare Unavailable [phone] REASON FOR VISIT Labs Social History Sex Assigned At : Social History Observation Description Sex Assigned At Male Encounters Encounter Location Date Provider Diagnosis [facility] [employer] [facility] [address] [place] [address] 09/04/2024 Shant Islas Plan Of Treatment Next Appt Details Provider Name:Shant Islas , 09/16/2024 04:15:00 PM, [address], [place], [address], Progress Notes * DILLON TOUSSAINTDOB:1970 (54 yo M)Acc No.[id number]:09/04/2024 Patient: DILLON PAYNE :1970 A ge:54 Y S ex:Male Address:[address], [address] * true * Date: Generated for Luis Mi makenzie/Lesly/eTransmitting on: 0 09/13/2024 04:04 PM SOCIAL WORK PROGRAM COORDINATOR
[2024-09-13 17:43] LABS: Alanine Aminotransferase 151 U/L (6-50); Albumin Level 4.5 g/dL (3.5-5.1); Alkaline Phosphatase 75 U/L (38-126); Anion Gap 12 mmol/L (4-12); Aspartate Amino Transferase 110 U/L (17-59); Bilirubin,Total 0.5 mg/dL (0.2-1.3); Blood Urea Nitrogen 25 mg/dL (9-20); Calcium 9.5 mg/dL (8.4-10.2); Carbon Dioxide 30 mmol/L (22-30); Chloride 99 mmol/L (98-107); Estimated Glomerular Filt Rate 59; Glucose 87 mg/dL (65-110); Potassium 4.5 mmol/L (3.4-5.0); Sodium 141 mmol/L (137-145)
== END 2024-09-13 16:02 | disposition home or self-care (01) ==
LOC: ANHGOSHLAB 16:02
PROVIDERS: PCP Internal Medicine; Visit Provider Psychiatry & Neurology Psychiatry
DX: F32.1 Major depressive disorder, single episode, moderate (principal)
CPT/HCPCS: 36415; 80053

== ENCOUNTER 2024-09-20 08:33 | Outpatient (CLI) | payer OTHER, SELFPAY ==
--- OUTSIDE RECORDS SUMMARY | 2024-09-20 08:50 | XMS_ITS ---
Author Organization [facility] [employer] Address [address] [facility] [address] [place] [address] Care Team Providers Care Fish Processor Name Role Phone Bala Avila DO Primary Care Provider Shant Hare Unavailable [phone] Allergies No Known Allergies REASON FOR VISIT Follow up, Depression screening positive, Elevated or Hypertensive blood pressure reading Medications Medication SIG (Take, Route, Frequency, Duration) Notes Start Date End Date Status Armodafinil 50 MG 2 tablet Orally Once a day for 90 days dose reduced 09/16/2024 Active buPROPion HCl ER (XL) 150 MG 1 tablet in the morning Orally Once a day for 90 days Active Sertraline HCl 100 MG 2 tablet every mor jaqui Oral Once a day for 90 days Active Social History Tobacco Use: Social History Observation Description Date Details (start date - stop date) Former Smoker 09/28/2006 - 02/28/2010 Sex Assigned At : Social History Observation Description Sex Assigned At Male Tobacco Control (Standard) Question Answer Notes Tobacco use: Former smoker When did you start smoking? 09/28/2006 When did you stop smoking? 02/28/2010 How long has it been since you [...] to 3 times a week (3 points) Vital Signs Blood pressure systolic 145 mm Hg 09/16/19 25 Blood pressure diastolic 82 mm Hg 025 Heart Rate 80 /min 09/16/2024 Height 71 in 09/16/2024 Weight 361 lbs 09/16/2024 BMI 50.34 kg/m2 09/16/2024 Height-cm 180.34 cm 09/16/2024 Weight-kg 163.75 kg 09/16/2024 Encounters Encounter Location Date Provider Diagnosis [facility] [employer] [facility] [address] [facility] [address] [place] [address] 09/16/2024 Shant Janel Moderate major depression F32.1 ; Obstructive sleep apnea G47.33 and ED (generalized anxiety disorder) F41.1 Assessments Encounter Date Diagnosis (ICD Code) Assessment Notes Treatment Notes Treatment Clinical Notes Section Notes 09/16/2024 Moderate major depression (ICD-10 - F32.1) 09/16/2024 Obstructive sleep apnea (ICD-10 - G47.33) 09/16/2024 ED (generalized anxiety disorder) (ICD-10 - F41.1) 09/16/2024 Other Depression and Fatigue - Assessment: Patient reported feeling better on a higher dosage of modafinil and experienced appetite suppression. - Plan: - Continue bupropion 150 mg daily. - Increase modafinil to 100 mg daily (2 tablets of 50 mg). - Follow up in 2 months via telehealth appointment. Elevated Liver Enzymes (AST and ALT) and Fatty Liver - Assessment: Patient has elevated liver enzymes and fatty liver, with a family history suggesting possible hereditary liver enzyme issue. - Plan: - Patient to undergo testing for hereditary liver enzyme issue. - Follow up with operations label clerk and Dr. Preston in January. - Encourage patient to continue with the 50-day program for weight loss and lifestyle modification. Monitoring Labs - Assessment: Regular monitoring of metabolic panel required. - Plan: - Order metabolic panel to be done a week before the next follow-up appointment. - Patient to have labs done at [place]. Asthma - Assessment: Patient currently has sufficient Ventolin supply. - Plan: - Reassess need for Ventolin refill at the next follow-up appointment. Plan Of Treatment Medication Medication Name Sig Start Date Stop Date Notes Armodafinil 50 MG 2 tablet Orally Once a day for 90 days 09/16/2024 dose reduced buPROPion HCl ER (XL) 150 MG 1 tablet in the morning Orally Once a day for 90 days Sertraline HCl 100 MG 2 tablet every mor jaqui Oral Once a day for 90 days Future Test Test Name Order Date Comp. Metabolic Panel (14) 09/16/2024 Next Appt Details Follow Up: 2 Months, Reason: Provider Name:Shant Martinez , 11/11/2024 02:45:00 PM, [address], [facility] [address], [place], [address], Progress Notes * NORBERTDILLONDOB:1970 (54 yo M)Acc No.[id number]:09/16/2024 Patient: DILLON PAYNE Provider: Ary MARTINEZ MD :1970 A ge:54 Y S ex:Male Date:09/16/2024 Address:[address] [place], [place] [id number] Pcp:Bala Avila DO Subjective: * Chief Complaints: * F ollow upDepression screening positiveElevated or Hypertensive blood pressure reading * HPI: D epression Screening: The note is transcribed using speech recognition software. It is a reflection of a visit with the patient. It might have some inaccuracy, including medication names and transcribing errors, though efforts have been made to correct them. Chief Complaint: Follow-up on medication efficacy and lifestyle changes Medication Response: The patient reports feeling better since starting bupropion and modafinil. He was initially on modafinil 100 mg and recently reduced to 50 mg for about a week, but he was confused about the dosage and clarified it with the clinician. He notes improved efficacy with the 100 mg dose, particularly in appetite suppression and adherence to lifestyle changes. Lifestyle Changes: The patient has been following a 50-day program involving 30 minutes of exercise daily and has lost approximately 7-8 pounds since his last visit. Medical Concerns: Regarding liver concerns, the patient underwent an ultrasound which revealed fatty liver without cirrhosis. Recent lab work shows AST decreased from 147 to 110, while ALT increased from 134 to 151. The patient mentions a family history of a rare hereditary liver condition, for which he will be tested. He denies rapid weight loss associated with this condition. Current Medications: The patient continues to take sertraline along with bupropion and modafinil. Overall Well-being: The patient reports feeling pretty good with the current medication regimen and lifestyle changes. Appointment Preference: He prefers telehealth appointments due to the convenience of working from home. ED-7 (2018 Edition) F eeling nervous, anxious, or on edge S everal N ot being able to stop or control worrying?Several days W orrying too much about different things N ot at all T rouble relaxing S ever B eing so restless that it is hard to sit still S ever B ecoming easily annoyed or irritable S ever F eeling afraid as if something awful might happen N ot at all [place]-Suicide Severity Rating Scale: Suicide Risk (CSRS-screener) i n the past one month Have you wished you were or wished you could go to sleep and not wake up? N o i n the past one month Have you actually had any thoughts of killing yourself? N o D epression screening: PHQ-9 L ittle interest or pleasure in doing things?Several days F eeling down, depressed, or hopeless S ever T rouble falling or staying asleep, or sleeping too much N ot at all F eeling tired or having little energy S ever P oor appetite or overeating S ever F eeling bad about yourself or that you are a failure, or have let yourself or your family down S ever T rouble concentrating on things, such as reading the newspaper or watching television S ever M oving or speaking so slowly that other people could have noticed; or the opposite, being so fidgety or restless that you have been moving around a lot more than usual N ot at all T houghts that you would be better off or of hurting yourself in some way N ot at all T otal Score 6 I nterpretation M ild Depression Intervention D epression Screening Findings P ositve F ollow-Up for Depression M [facility] treatment assessment, Patient follow-up to return when and if necessary S uicide Risk Assessment Performed 0 09/16/2024 A dditional Evaluation for Depression P sychiatric interview and evaluation N marj of the standardized tool used for adult depression screening: [facility] Health Questionnaire (PHQ-9) * Medical History: * Surgical History: * Hospitalization/Major Diagno stic Procedure: * Social History: T obacco Use: T obacco Control (Standard) T obacco use: F ormer smoker W hen did you start smoking? 0 09/28/2006 W hen did you stop smoking? 0 02/28/2010 H ow long has it been since you last smoked??Greater than 10 years M igrated Social History: M igrated Social History: Alcohol Intake: Moderate 12/03/2020,Tobacco Years: Former smoker 12/03/2020. D rug/Alcohol: D rugs H ave you used drugs other than those for medical reasons in the past 12 months? N o AUDIT-C (Standard) D id you have a drink containing alcohol in the past year? Y es H ow often did you have six or more drinks on one occasion in the past year? 2 to 3 times per week (3 points) H ow many drinks did you have on a typical day when you were drinking in the past year? 1 or 2 drinks (0 point) H ow often did you have a drink containing alcohol in the past year? 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 Safety issues A re there any firearms in the house? Y es Advance Care Planning A re you your own decision-maker Y es D o you have Power of Group Segment Consultant for Health or Medical? N o S ocial History: H ousehold M arital Status: M arried N umber of Adults in household: 2 N umber of Children in Household: 0 L evel of Education: N ot Finished College * Medications: T akingSertraline HCl 100 MG Tablet TAKE 2 TABLETS BY MOUTH EVERY DAY Oral Armodafinil 50 MG Tablet 1 tablet Orally Once a day , Notes to Pharmacist: dose reducedbuPROPion HCl ER (XL) 150 MG Tablet Extended Release 24 Hour 1 tablet in the morning Orally Once a day Medication List reviewed and reconciled with the patientTaking Sertraline HCl 100 MG Tablet TAKE 2 TABLETS BY MOUTH EVERY DAY Oral Taking Armodafinil 50 MG Tablet 1 tablet Orally Once a day , Notes to Pharmacist: dose reducedTaking buPROPion HCl ER (XL) 150 MG Tablet Extended Release 24 Hour 1 tablet in the morning Orally Once a day Medication List reviewed and reconciled with the patient * Allergies: N .K.D.A.no[Allergies Verified] Objective: * Vitals: B P:145/82mm Hg, HR:80/min, Wt:361lbs, Wt-k.75 kg, Ht: 71 in, Ht-cm: 180.34 cm, BMI:50.34Index, Body Surface Area: 2.86. * Examination: G eneral Examination: M ental Status Examination: Patient reported feeling 'okay' but tired. He expressed some confusion regarding modafinil dosage, initially reduced to 50 mg, but felt better on 100 mg. He reported improved mood and decreased appetite on the current medication regimen, though noted an increase in appetite with a dosage adjustment. Vital Signs: review the notes for vitals Diagnostic Test Results and Labs: Liver Function Tests: AST elevated at 110 U/L, decreased from 147 U/L in July 2024. ALT elevated at 151 U/L, increased from 134 U/L in July 2024. Alkaline Phosphatase: 75 U/L. Total Bilirubin: 0.5 mg/dL. Renal Function and Electrolytes: Sodium 141 mmol/L, Potassium 4.5 mmol/L, Creatinine 1.27 mg/dL. Glucose: Fasting Glucose 87 mg/dL. Ultrasound results indicated fatty liver without cirrhosis or other complications. Patient is undergoing further testing for a hereditary liver condition. Physical Examination: Weight: Patient reported a weight loss of approximately 7- 8 pounds since the last visit, attributed to participation in a 50-day gym program. General Appearance: No acute distress observed during the conversation. Assessment: * Assessment: 1. M oderate major depression - F32.1 (Primary) 2 . O bstructive sleep apnea - G47.33 3 . G AD (generalized anxiety disorder) - F41.1 Plan: * Treatment: 2. O bstructive sleep apnea Refill Armodafinil Tablet, 50 MG, 2 tablet, Orally, Once a day, 90 days, 180 Tablet, Refills 0, Notes to Pharmacist: dose reduced. 3. O thers Clinical Notes: Depression and Fatigue - Assessment: Patient reported feeling better on a higher dosage of modafinil and experienced appetite suppression. - Plan: - Continue bupropion 150 mg daily. - Increase modafinil to 100 mg daily (2 tablets of 50 mg). - Follow up in 2 months via telehealth appointment. Elevated Liver Enzymes (AST and ALT) and Fatty Liver - Assessment: Patient has elevated liver enzymes and fatty liver, with a family history suggesting possible hereditary liver enzyme issue. - Plan: - Patient to undergo testing for hereditary liver enzyme issue. - Follow up with operations label clerk and Dr. Preston in January. - Encourage patient to continue with the 50-day program for weight loss and lifestyle modification. Monitoring Labs - Assessment: Regular monitoring of metabolic panel required. - Plan: - Order metabolic panel to be done a week before the next follow-up appointment. - Patient to have labs done at [place]. Asthma - Assessment: Patient currently has sufficient Ventolin supply. - Plan: - Reassess need for Ventolin refill at the next follow-up appointment. * Procedure Codes: 9 6127 BEHAV ASSMT W/SCORE & DOCD/STAND [id number] PREHTN/HTN BP DOC INDCD F/U [id number] CLIN DEPRESSION SCREEN [id number] MOST RECENT SYSTOLIC BP >= 140MM HG * Preventive Medicine: Counseling: B P Management: FIRST HYPERTENSIVE BP READING FOLLOW-UP PLAN: F jairolow-up 1 month Follow up with your PCP LIFESTYLE RECOMMENDATION: L ifestyle education REFERRAL TO ALTERNATIVE / PRIMARY CARE PROVIDER: R vaughn to general medical service WEIGHT REDUCTION RECOMMENDATION: W eight-reducing diet education DIETARY RECOMMENDATIONS: D iet education Dietary Healthy-Heart Diet * Follow Up: 2 Months * Billing Information: * Visit Code: 75585 OFFICE OUTPATIENT VISIT 25 MINUTES DETAILED HISTORY AND EXAM/MODERATE MEDICAL DECISION MAKING. * Procedure Codes: 74310 BEHAV ASSMT W/SCORE & DOCD/STAND INSTRUMENT. G8950 PREHTN/HTN BP DOC INDCD F/U DOC. G8431 CLIN DEPRESSION SCREEN DOC. G8753 MOST RECENT SYSTOLIC BP >= 140MM HG. * ING PROCESS ENGINEER Sign off status: Completed true * Provider: Ary MARTINEZ MD Date: 0 09/16/2024 Generated for Printi ng/Faluz marinag/eTransmitting on: 0 09/20/2024 08:50 AM WELDING PROCESS ENGINEER History and Physical Notes * HPI (History of Present Illness) Category Sub-Category Detail Notes Category Not es Depression screening PHQ-9 Little inte rest or pleasure in doing things: Several days Feeling down, depressed, or hopeless: Se veral days Trouble falling or staying asleep, or sl eeping too much: Not at all Feeling tired or having little energy: S everal days Poor appetite or overeating: Several day s Feeling bad about yourself o r that you are a failure, or have let yourself or your family down: Several days Trouble concentrating on thi ngs, such as reading the newspaper or watching television: Several days Moving or speaking so slowly that other people could have noticed; or the opposite, being so fidgety or restless that you have been moving around a lot more than usual: Not at all Thoughts that you would be b guillermina off or of hurting yourself in some way: Not at all Total Score: 6 Interpretation: Mild Depression Intervention Depression Screening Findings: P ositve Follow-Up for Depression: [facility] treatment assessment, Patient follow-up to return when and if necessary Suicide Risk Assessment Performed: 09/16 Additional Evaluation for Depression: Ps ychiatric interview and evaluation Name of the standardized too l used for adult depression screening:: Patient Health Questionnaire (PHQ-9) Depression Screening ED-7 (2018 Edition) Feelin g nervous, anxious, or on edge: Several days Not being able to stop or control worryi ng: Several days Worrying too much about different things : Not at all Trouble relaxing: Several days Being so restless that it is hard to sit still: Several days Becoming easily annoyed or irritable: Se veral days Feeling afraid as if something awful kandi ht happen: Not at all [place]-Suicide Severity Rating Scale Suicide Risk (CSRS-screener) in the past one month Have you wished you were or wished you could go to sleep and not wake up?: No in the past one month Have y ou actually had any thoughts of killing yourself?: No Examination Category Sub-Category Detail Notes Category Not es General Examination Mental Status Examination: Patient reported feeling 'okay' but tired. He expressed some confusion regarding modafinil dosage, initially reduced to 50 mg, but felt better on 100 mg. He reported improved mood and decreased appetite on the current medication regimen, though noted an increase in appetite with a dosage adjustment. Vital Signs: review the notes for vitals Diagnostic Test Results and Labs: Liver Function Tests: AST elevated at 110 U/L, decreased from 147 U/L in July 2024. ALT elevated at 151 U/L, increased from 134 U/L in July 2024. Alkaline Phosphatase: 75 U/L. Total Bilirubin: 0.5 mg/dL. Renal Function and Electrolytes: Sodium 141 mmol/L, Potassium 4.5 mmol/L, Creatinine 1.27 mg/dL. Glucose: Fasting Glucose 87 mg/dL. Ultrasound results indicated fatty liver without cirrhosis or other complications. Patient is undergoing further testing for a hereditary liver condition. Physical Examination: Weight: Patient reported a weight loss of approximately 7-8 pounds since the last visit, attributed to participation in a 50-day gym program. General Appearance: No acute distress observed during the conversation.
--- OUTSIDE RECORDS SUMMARY | 2024-09-20 08:50 | XMS_ITS | Clinical Summary ---
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
--- OUTSIDE RECORDS SUMMARY | 2024-09-20 08:50 | XMS_ITS ---
Author Organization [facility] [employer] [facility] Address [address] [facility] [address] [place] [address] Care Team Providers Care Chemical Laboratory Chief Name Role Phone Bala Avila DO Primary Care Provider Shant Hare Unavailable [phone] REASON FOR VISIT RE:RE:Labs Social History Sex Assigned At : Social History Observation Description Sex Assigned At Male Encounters Encounter Location Date Provider Diagnosis [facility] [email or web address] [facility] [address] [place] [address] 09/13/2024 Shant Islas Plan Of Treatment Next Appt Details Provider Name:Shant Islas , 11/11/2024 02:45:00 PM, [address], [address], [place], [address], Progress Notes * DILLON TOUSSAINTDOB:1970 (54 yo M)Acc No.[id number]:09/13/2024 Patient: DILLON PAYNE :1970 A ge:54 Y S ex:Male Address:[address] [place], [address] * true * Date: Generated for Printi ng/Faxing/eTransmitting on: 0 09/20/2024 08:50 AM BOTTOM FILLER
--- OUTSIDE RECORDS SUMMARY | 2024-09-20 08:51 | XMS_ITS ---
Author Organization [facility] [employer] [facility] Address [facility] [facility] [address] [facility] [address] [place] [address] Care Team Providers Care Blanchard Grinder Operator Name Role Phone Bala Avila DO Primary Care Provider Shant Hare Unavailable [phone] REASON FOR VISIT RE:Labs Social History Sex Assigned At : Social History Observation Description Sex Assigned At Male Encounters Encounter [facility] [address] [facility] [address] [place] [address] 09/04/2024 Shant Islas Plan Of Treatment Next Appt Details Provider Name:Shant Islas , 11/11/2024 02:45:00 PM, [address], [facility] [address], [place], [address], Progress Notes * DILLON TOUSSAINTDOB:1970 (54 yo M)Acc No.[id number]:09/04/2024 Patient: DILLON PAYNE :1970 A ge:54 Y S ex:Male Address:[address] [place], [address] * true * Date: Generated for Printi ng/Faxing/eTransmitting on: 0 09/20/2024 08:50 AM FIELD TECHNICAL ASSISTANT
== END 2024-09-20 08:34 | disposition home or self-care (01) ==
LOC: ANHGOSHLAB 08:35
PROVIDERS: PCP Internal Medicine; Visit Provider Nurse Practitioner
DX: K76.0 Fatty (change of) liver, not elsewhere classified (principal); R74.01 Elevation of levels of liver transaminase levels; Z83.49 Family history of other endocrine, nutritional and metabolic diseases
CPT/HCPCS: 36415; 82104

== ENCOUNTER 2024-11-07 14:56 | Outpatient (CLI) | payer OTHER, SELFPAY ==
--- OUTSIDE RECORDS SUMMARY | 2024-11-07 15:25 | XMS_ITS | Patient Health Record ---
Author Organization [facility] [employer] Address [address] [place] [address] Care Team Providers Care Bus Transportation Manager Name Role Phone Bala Avila DO Primary Care Provider Shant Hare Unavailable [phone] Migration, Provider Unavailable Unavailable Allergies No Known [...] Once a day for 90 days Active Immunizations Vaccine Route Administration Date Status Comme nts Novel [id number], preservative free Unknown 05/21/2017 Administered Pfizer Biontech Covid-19 Vac cine 2nd dose Unknown 10/01/2020 Administered Pfizer Biontech Covid-19 Vac cine 2nd dose Unknown 10/22/2020 Administered Tdap Unknown 02/16/2010 Administered Social History Tobacco Use: Social History [...] Status Risk Notes Problem Generalized anxiety disorder (40762759) ED (generalized anxiety disorder) (F41.1) Active confirmed Problem 65037581 Obstructive sleep apnea (G47.33) Active confirmed Problem 409611 Moderate major depression (F32.1) Active confirmed Vital Signs Heart Rate 80 /min 09/16/2024 Height-cm 180.34 cm 09/16/2024 Blood pressure diastolic 82 mm Hg 09/16/2024 Weight-kg 163.75 kg 09/16/2024 Height 71 in 09/16/2024 Blood pressure systolic 145 mm Hg 09/16/2024 Weight 361 lbs 09/16/2024 BMI 50.34 kg/m2 09/16/2024 Encounters Encounter Location Date Provider Diagnosis [facility] [place] [address] [facility] [address] [address] 04/26/2024 Shant Janel Moderate major depression F32.1 ; Obstructive sleep apnea G47.33 and ED (generalized anxiety disorder) F41.1 [facility] [employer] [place] [address] [facility] [address] [address] 05/20/2024 Shant Janel Moderate major depression F32.1 ; Obstructive sleep apnea G47.33 and ED (generalized anxiety disorder) F41.1 [facility] [employer] [facility] [address] [facility] [address] [address] 08/19/2024 Shant Janel Moderate major depression F32.1 ; Obstructive sleep apnea G47.33 and ED (generalized anxiety disorder) F41.1 [facility] [employer] [address] [address] 09/16/2024 Shant Janel Moderate major depression F32.1 ; Obstructive sleep apnea G47.33 and ED (generalized anxiety disorder) F41.1 [facility] [employer] [place] [address] [facility] [address] [address] 12/16/2023 Provider Migration [facility], [facility] [address] [place] [address] 12/17/2023 Provider Migration [facility] [address] [place] [address] 09/04/2024 Shant Chaviraam [facility] [address] [place] [address] 09/04/2024 Shantgarrick Chaviraam [facility] [address] [place] [address] 09/13/2024 Shant Janel Assessments Encounter Date Diagnosis (ICD Code) Assessment Notes Treatment Notes Treatment Clinical Notes Section Notes 04/26/2024 Obstructive sleep apnea (ICD-10 - G47.33) [...] (90-day supply) and is connected to the [facility] for medication management. - Plan: - Send the prescription for Modafinil to the pharmacy ([facility]). - Monitor the patient's response to [...] (90-day supply) and is connected to the [facility] for medication management. - Plan: - Send the prescription for Modafinil to the pharmacy ([facility]). - Monitor the patient's response to [...] alcohol intake to improve liver function. 05/20/2024 Moderate major depression (ICD-10 - F32.1) [...] supply of armodafinil at the new dosage 09/16/2024 Moderate major depression (ICD-10 - F32.1) 08/19/2024 Moderate major depression (ICD-10 - F32.1) 09/16/2024 Obstructive sleep apnea (ICD-10 - G47.33) 05/20/2024 Obstructive sleep apnea (ICD-10 - G47.33) [...] 08/19/2024 Obstructive sleep apnea (ICD-10 - G47.33) 04/26/2024 ED (generalized anxiety disorder) (ICD-10 - [...] (90-day supply) and is connected to the [facility] for medication management. - Plan: - Send the prescription for Modafinil to the pharmacy ([facility]). - Monitor the patient's response to [...] alcohol intake to improve liver function. 05/20/2024 ED (generalized anxiety disorder) (ICD-10 - [...] of armodafinil at the new dosage 08/19/2024 ED (generalized anxiety disorder) (ICD-10 - F41.1) 09/16/2024 ED (generalized anxiety disorder) (ICD-10 - F41.1) 04/26/2024 Other Learning About Depression Screening material [...] (90-day supply) and is connected to the [facility] for medication management. - Plan: - Send the prescription for Modafinil to the pharmacy ([facility]). - Monitor the patient's response to [...] in 3 weeks at the same lab ([facility]) to assess liver enzyme levels. ADHD and Food Issues - Assessment: Patient's inspector elevators suggested considering Vyvanse or its generic for [...] done 2-3 weeks before the follow-up appointment. 09/16/2024 Other Depression and Fatigue - Assessment: [...] liver enzyme issue. - Follow up with swing type lathe operator and Dr. Preston in January. - Encourage patient to continue with the 50-day program for weight loss and lifestyle modification. Monitoring Labs - Assessment: Regular monitoring of metabolic panel required. - Plan: - Order metabolic panel to be done a week before the next follow-up appointment. - Patient to have labs done at [facility]. Asthma - Assessment: Patient currently has sufficient Ventolin supply. - Plan: - Reassess need for Ventolin refill at the next follow-up appointment. Plan Of Treatment Pending Test Test Name Order Date UDT 04/26/2024 Future Test Test Name Order Date Comp. Metabolic Panel (14) 09/16/2024 Next Appt Details Provider Name:Shant Islas , 11/11/2024 02:45:00 PM, [address] [facility] [address], [facility] [address], [place], [address], Insurance Providers Payer Name Payer Address Payer Phone Subscriber Number Group Number Insured Name Patient Relationship to Insured Coverage Start Date Coverage End Date [facility] [address] [address] [place] [address] [phone] [id number] DILLON TOUSSAINT Self - patient is the [...] Surgical History Surgery Date(Month/Year) Removal of gallbladder (72923) 6
--- OUTSIDE RECORDS SUMMARY | 2024-11-07 15:25 | XMS_ITS | Clinical Summary ---
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
[2024-11-07 19:35] LABS: Alanine Aminotransferase 102 U/L (6-50); Albumin Level 4.5 g/dL (3.5-5.1); Alkaline Phosphatase 90 U/L (38-126); Anion Gap 11 mmol/L (4-12); Aspartate Amino Transferase 80 U/L (17-59); Bilirubin,Total 0.3 mg/dL (0.2-1.3); Blood Urea Nitrogen 22 mg/dL (9-20); Carbon Dioxide 28 mmol/L (22-30); Chloride 102 mmol/L (98-107); Estimated Glomerular Filt Rate > 60; Glucose 88 mg/dL (65-110); Potassium 4.3 mmol/L (3.4-5.0); Sodium 141 mmol/L (137-145)
== END 2024-11-07 14:57 | disposition home or self-care (01) ==
LOC: ANHGOSHLAB 14:59
PROVIDERS: Nurse Practitioner; PCP Internal Medicine; Visit Provider Psychiatry & Neurology Psychiatry
DX: R74.01 Elevation of levels of liver transaminase levels (principal); K76.0 Fatty (change of) liver, not elsewhere classified; F32.1 Major depressive disorder, single episode, moderate
CPT/HCPCS: 36415; 80053; 82104

== ENCOUNTER 2024-12-11 08:36 | Outpatient (CLI) | payer OTHER, SELFPAY ==
--- NOTE | 2024-11-27 14:25 | PC.NURSE ---
Pre Radiology instructions Report to the outpatient nick abdiperu on date _[id number]_ at time _0830_ for procedure Time: _1030_ YOU MAY BE MONITORED AT HOSPITAL FOR UP TO 4 HOURS AFTER YOUR PROCEDURE. A visitor will be allowed to accompany the patient into the hospital. You and your visitor will be asked to self-screen and do not enter if you have any COVID symptoms. A mask is OPTIONAL within the hospital. Patients are to have no food or drink 6 hours prior to procedure time Driving will be restricted after the procedure, you must have a person to drive you home. Labs will be drawn in preop area and once reviewed, you will be taken to radiology area for procedure. When the procedure is completed, you will be taken to outpatient where you will be monitored for several hours. You may have one visitor in this area. Other than holding anti-coagulants, patient may take other medication(s) as scheduled. Prior to your appointment date patients are instructed to hold anti-coagulants after discussing with ordering provider to stop. If unable to discontinue anti-coagulants please notify radiologist. No aspirin or warfarin (Coumadin) for 7 days prior to the procedure. No clopidogrel (Plavix), ticagrelor (Brilinta), prasugrel (Effient) or dabigatran (Pradaxa) for 5 days prior to the procedure. No rivaroxaban (Xarelto), apixaban (Eliquis), dipyridamole (Aggrenox or Persantine) or cilostazol (Pletal) for 2 days prior to the procedure. Medications to discontinue per physician: Date to take last dose: Please leave all valuables, including medications, at home the day of procedure. The hospital will not accept responsibility for valuables. Wear comfortable, loose fitting clothing. Follow any additional instructions given to you from ordering provider. Telephone instructions given to __Jeff__and asked if any additional questions and then verbalized understanding. Patient advised to call scheduling provider office or registration scheduling [phone] if any additional questions.
[2024-11-27 14:31] VITALS: BMI 48.9
[2024-12-11] VITALS (12 sets, daily range): BP systolic 125–156; BP diastolic 62–79; PULSE 64–80; RESP 16; TEMP 36.7; O2SAT 97–99; BMI 48.9
--- NOTE | ~2024-12-11 | US_ITS ---
EXAMINATION: US biopsy liver DATE: 12/11/2024 10:38 INDICATION: Hepatic steatosis and elevated liver function tests TECHNIQUE: The procedure including the risks and benefits was discussed with the patient. Risks discu ssed included bleeding and infection. The patient understood the risks and agreed to proceed. The sk in overlying the left hepatic lobe was prepped and draped in usual sterile fashion. Anesthetic was a dministered with 1% lidocaine subcutaneously. An 18 gauge core biopsy needle was advanced under cont inuous ultrasound observation to the lesion of interest. 3 core biopsy specimens were obtained. The needle was removed and the entry site was cleaned and dressed. Post procedure ultrasound demonstrat ed no hemorrhage. FINDINGS: Ultrasound images demonstrate the biopsy needle advanced into the left hepatic lobe. IMPRESSION: 1. Successful Ultrasound-guided random liver biopsy. Reviewed, dictated and finalized at location A.
--- OUTSIDE RECORDS SUMMARY | 2024-12-11 08:42 | XMS_ITS | Clinical Summary ---
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
--- OUTSIDE RECORDS SUMMARY | 2024-12-11 08:42 | XMS_ITS | Patient Health Record ---
Author Organization [facility] [employer] Address [address] [place] [address] Care Team Providers Care Cdl Program Coordinator Name Role Phone Bala Avila DO Primary Care Provider Shant Hare Unavailable [phone] Migration, Provider Unavailable Unavailable Allergies No Known Allergies Reason For Referral No Information Medications Medication SIG (Take, Route, Frequency, Duration) Notes Start Date End Date Status buPROPion HCl ER (XL) 150 MG 1 tablet in the morning Orally Once a day for 90 days Shant Islas 11/11/2024 03:07:11 PM CDT > Active Armodafinil 50 MG 1 tablet Orally Once a day for 30 days 11/22/2024 12/22/2024 Active Sertraline HCl 100 MG 2 tablet every morning Oral Once a day for 90 days Shant Islas 11/11/2024 03:07:18 PM CDT > Active Immunizations Vaccine Route Administration Date Status Comme nts Novel [id number], preservative free Unknown 05/21/2017 Administered Pfizer Biontech [...] has it been since you last smoked? Melinda ter than 10 years AUDIT-C (Standard) Question [...] Problem Status W/U Status Risk Notes Problem ED (generalized anxiety disorder) (F41.1) Active confirmed Problem 77222751 Obstructive sleep apnea (G47.33) Active confirmed Problem 440776 Moderate major depression (F32.1) Active confirmed Vital Signs Heart Rate 84 /min 11/11/2024 Height-cm 180.34 cm 11/11/2024 Blood pressure diastolic 76 mm Hg 11/11/2024 Weight-kg 165.56 kg 11/11/2024 Height 71 in 11/11/2024 Blood pressure systolic 131 mm Hg 11/11/2024 Weight 365 lbs 11/11/2024 BMI 50.9 kg/m2 11/11/2024 Encounters Encounter Location Date Provider Diagnosis [facility] [address] [address] 04/26/2024 Shant Janel Moderate major depression F32.1 ; Obstructive sleep apnea G47.33 and ED (generalized anxiety disorder) F41.1 [facility] [address] [address] 05/20/2024 Shant Janel Moderate major depression F32.1 ; Obstructive sleep apnea G47.33 and ED (generalized anxiety disorder) F41.1 [facility] [address] [facility] [address] [place] [address] 08/19/2024 Shant Janel Moderate major depression F32.1 ; Obstructive sleep apnea G47.33 and ED (generalized anxiety disorder) F41.1 [facility] [address] [facility] [address] [place] [address] 09/16/2024 Shant Janel Moderate major depression F32.1 ; Obstructive sleep apnea G47.33 and ED (generalized anxiety disorder) F41.1 [facility] [address] [facility] [address] [place] [address] 11/11/2024 Shant Islas Encounter for screening for depression Z13.31 ; Encounter for screening for cardiovascular disorders Z13.6 ; Moderate major depression F32.1 ; Obstructive sleep apnea G47.33 and ED (generalized anxiety disorder) F41.1 [facility] [address] [facility] [address] [place] [address] 12/16/2023 Provider Migration [facility] [address] [facility] [address] [place] [address] 12/17/2023 Provider Migration [facility] [address] [facility] [address] [address] 11/21/2024 Shant Chaviraam Obstructive sleep apnea G47.[address] [address] 09/04/2024 Shant Islas [facility] [address] [address] [facility] [address] [facility] [address] [address] 09/13/2024 Shant Islas Assessments Encounter Date Diagnosis (ICD Code) [...] (90-day supply) and is connected to the [facility] for medication management. - Plan: - Send the prescription for Modafinil to the pharmacy ([facility]). - Monitor the patient's response to [...] (90-day supply) and is connected to the [facility] for medication management. - Plan: - Send the prescription for Modafinil to the pharmacy ([facility]). - Monitor the patient's response to [...] Moderate major depression (ICD-10 - F32.1) 09/16/2024 Moderate major depression (ICD-10 - F32.1) 11/11/2024 Encounter for screening for depression (ICD-10 - Z13.31) 11/21/2024 Obstructive sleep apnea (ICD-10 - G47.33) Electronic Prior Authorization was requested for Armodafinil 50 MG Tablet. Provider can order medication once approval received. 09/16/2024 Obstructive sleep apnea (ICD-10 - G47.33) 11/11/2024 Encounter for screening for cardiovascular disorders (ICD-10 - Z13.6) 05/20/2024 Obstructive sleep apnea (ICD-10 - G47.33) [...] (90-day supply) and is connected to the [facility] for medication management. - Plan: - Send the prescription for Modafinil to the pharmacy ([facility]). - Monitor the patient's response to the medication. - Schedule a follow-up appointment in three weeks to reassess the patient's symptoms and treatment plan. Other Medical History - Assessment: Patient had gallbladder removal before the pandemic (2016 or 2017). Patient reports slightly elevated liver enzymes. - Plan: Continue to encourage reduction in alcohol intake to improve liver function. Alcohol Use - Assessment: Patient reports drinking a beer or two here and there, which is a reduction from previous consumption levels. - Plan: Continue to encourage reduction in alcohol intake to improve liver function. 09/16/2024 ED (generalized anxiety disorder) (ICD-10 - F41.1) 08/19/2024 ED (generalized anxiety disorder) (ICD-10 - [...] supply of armodafinil at the new dosage 11/11/2024 Moderate major depression (ICD-10 - F32.1) 11/11/2024 Obstructive sleep apnea (ICD-10 - G47.33) 11/11/2024 ED (generalized anxiety disorder) (ICD-10 - F41.1) [...] (90-day supply) and is connected to the [facility] for medication management. - Plan: - Send the prescription for Modafinil to the pharmacy ([facility]). - Monitor the patient's response to the medication. - Schedule a follow-up appointment in three weeks to reassess the patient's symptoms and treatment plan. Other Medical History - Assessment: Patient had gallbladder removal before the pandemic (2016 or 2017). Patient reports slightly elevated liver [...] in 3 weeks at the same lab ([facility]) to assess liver enzyme levels. ADHD and Food Issues - Assessment: Patient's nutrition educator suggested considering Vyvanse or its generic for [...] liver enzyme issue. - Follow up with meter installer and remover and Dr. Preston in January. - Encourage patient to continue with the 50-day program for weight loss and lifestyle modification. Monitoring Labs - Assessment: Regular monitoring of metabolic panel required. - Plan: - Order metabolic panel to be done a week before the next follow-up appointment. - Patient to have labs done at [facility]. Asthma - Assessment: Patient currently has sufficient Ventolin supply. - Plan: - Reassess need for Ventolin refill at the next follow-up appointment. 11/11/2024 Other Problem-Based Assessment and Plan Dillon Toussaint, a male patient with a history of sleep apnea and liver issues, presents with concerns about weight fluctuations, difficulty focusing, and decreased work performance. Cognitive difficulties and decreased work performance Assessment: Patient reports increasing difficulty focusing and making mistakes, which is affecting his work performance. He notes that he is not completing tasks as quickly as before and needs to look up information more frequently. These cognitive issues may be related to his recent weight fluctuations, sleep apnea, or potential medication side effects. The patient's sleep apnea treatment was recently adjusted, which he reports has improved his sleep quality. However, the cognitive symptoms persist. Plan: - Continue armodafinil 50 mg daily (reduced from 100 mg due to elevated liver enzymes) - Monitor cognitive symptoms and work performance - Reassess after liver biopsy results are available Elevated liver enzymes and suspected autoimmune liver disease Assessment: Patient has a history of elevated liver enzymes, with recent improvement noted. AST decreased from 110 to 80, and ALT decreased from 151 to 102. A liver biopsy is scheduled for December 11 to investigate a suspected autoimmune liver condition, possibly primary biliary cholangitis (PBC). The patient denies current alcohol or marijuana use. Armodafinil dosage has been reduced due to its potential impact on liver function. Plan: - Continue armodafinil at reduced dose of 50 mg daily - Await liver biopsy results (scheduled for December 11) - Monitor liver function tests - Reassess medication regimen after biopsy results - Refill all three current medications for 2-3 months Weight management Assessment: Patient reports recent weight fluctuations, initially losing 15 pounds through a gym program and dietary changes, but regaining 10 pounds. He attributes this to reverting to old eating habits, including frequent dining out. The patient maintains gym attendance at least twice weekly. Previous attempts with Ozempic resulted in initial weight loss of 40 pounds before plateauing. Current insurance does not cover weight loss medications without a diabetes diagnosis. Plan: - Recommend consultation with primary care physician for dietary consult - Advise 6-8 week trial of dietary intervention - If dietary intervention is unsuccessful, consider exploring insurance coverage for Zepbound (tirzepatide) or similar medications - Educate patient on potential benefits of Zepbound for fatty liver disease Sleep apnea Assessment: Patient has a history of sleep apnea. Recent adjustment to his CPAP machine pressure settings by a nurse practitioner has reportedly improved his sleep quality. Plan: - Continue current CPAP therapy with adjusted settings - Monitor sleep quality and daytime alertness Disclaimer: This note has been transcribed using speech recognition software and serves as a reflection of the patient's visit. While efforts have been made to ensure accuracy, there may be errors, including assembler for puller over machine inaccuracies and misspellings of medication names. This document should not be considered a verbatim record, and any discrepancies should be verified with the provider. Plan Of Treatment Pending Test Test Name Order Date UDT 04/26/2024 Future Test Test Name Order Date Comp. Metabolic Panel (14) 09/16/2024 Next Appt Details Provider Name:Shant Islas , 02/03/2025 04:00:00 PM, [address], [facility] [address], [place], [address], Insurance Providers Payer Name Payer Address Payer Phone Subscriber Number Group Number Insured Name Patient Relationship to Insured Coverage Start Date Coverage End Date [facility] [address] [address] [place] [address] [id number] DILLON TOUSSAINT Self - patient is the [...] Surgical History Surgery Date(Month/Year) Removal of gallbladder (85423) 6
[2024-12-11 09:27] LABS: Mean Platelet Volume 9.9 fl (7.4-10.4); Platelet Count Result 226 k/mm3 (150-375)
[2024-12-11 09:38] LABS: Prothrombin Time 13.1 Seconds (11.1-14.7)
== END 2024-12-11 14:50 | disposition home or self-care (01) ==
LOC: ANHSURGERY 08:37
PROVIDERS: PCP Internal Medicine; Referring Provider Nurse Practitioner Family; Visit Provider Radiology Diagnostic Radiology
PROC: BF45ZZZ Ultrasonography of Liver (ICD-10-PCS; CPT 47000; principal; 2024-12-11 10:30)
DX: R74.01 Elevation of levels of liver transaminase levels (principal); K76.0 Fatty (change of) liver, not elsewhere classified; R89.9 Unspecified abnormal finding in specimens from other organs, systems and tissues
CPT/HCPCS: 36415; 47000; 76942; 85049; 85610; 88307; 88312; 88313

== ENCOUNTER 2025-05-19 09:25 | Outpatient (CLI) | payer OTHER, SELFPAY ==
[2025-05-19 13:05] LABS: Cholesterol 170 mg/dL (0-200); HDL Direct 45 mg/dL; Triglycerides 88 mg/dL (<150)
[2025-05-19 13:08] LABS: Hematocrit 45.2 % (42.0-52.0); Hemoglobin 14.7 g/dL (14.0-18.0); Mean Corpuscular HGB Conc 32.5 g/dl (32-36); Mean Corpuscular Hemoglobin 30.1 pg (26-34); Mean Corpuscular Volume 92.6 fl (80-100); Platelet Count Result 260 k/mm3 (150-375); Red Blood Count 4.88 M/mm3 (4.6-6.20); White Blood Count 7.4 K/mm3 (4.5-10.0)
[2025-05-19 13:14] LABS: Alanine Aminotransferase 71 U/L (6-50); Albumin Level 4.4 g/dL (3.5-5.1); Alkaline Phosphatase 89 U/L (38-126); Anion Gap 8 mmol/L (4-12); Aspartate Amino Transferase 86 U/L (17-59); Bilirubin,Total 0.5 mg/dL (0.2-1.3); Blood Urea Nitrogen 21 mg/dL (9-20); Calcium 9.0 mg/dL (8.4-10.2); Carbon Dioxide 28 mmol/L (22-30); Chloride 100 mmol/L (98-107); Estimated Glomerular Filt Rate > 60; Glucose 102 mg/dL (65-110); Potassium 4.7 mmol/L (3.4-5.0); Sodium 136 mmol/L (137-145); Total Protein 8.3 g/dL (6.3-8.2)
[2025-05-19 13:42] LABS: Prostate Specific Antigen 0.9 ng/mL (< OR = 4.0)
[2025-05-21 02:07] LABS: Free Testosterone (Direct) 4.2 pg/mL (7.2-24.0)
== END 2025-05-19 09:26 | disposition home or self-care (01) ==
LOC: ANHGOSHLAB 09:27
PROVIDERS: Nurse Practitioner Family; PCP Internal Medicine; Visit Provider Nurse Practitioner
DX: R74.01 Elevation of levels of liver transaminase levels (principal); Z13.220 Encounter for screening for lipoid disorders; Z12.5 Encounter for screening for malignant neoplasm of prostate; K76.0 Fatty (change of) liver, not elsewhere classified; R53.83 Other fatigue
CPT/HCPCS: 36415; 80053; 80061; 84153; 84402; 84403; 85027; G0103

== ENCOUNTER 2025-06-23 15:14 | Emergency (ER) | payer OTHER, SELFPAY ==
--- NOTE | ~2025-06-23 | XR_ITS ---
EXAM/PROCEDURE: XR chest 2V HISTORY: chest pain w/increasing SOB COMPARISON: 2013 TECHNIQUE: Two view(s) of the chest. FINDINGS: Exam is suboptimal because of the body habitus. LUNGS: Clear of acute processes. PLEURAL SPACES: Clear. No evidence of fluid or pneumothorax. HEART/ MEDIASTINUM: There is mild cardiomegaly. The heart has increased since in size the 2013 study. SOFT TISSUES: No significant findings. BONES: No acute osseous abnormality. IMPRESSION: Mild cardiomegaly. The prior study is 12 years old and did not show cardiomegaly, which would not be unusual. No acute findings. Reviewed, dictated and finalized at location B. ONARY SPECIALIST IMPRESSION: Mild cardiomegaly. The prior study is 12 years old and did not show cardiomegal y, which would not be unusual. No acute findings.
--- NOTE | ~2025-06-23 | CT_ITS ---
EXAMINATION: CTA chest PE protocol, 06/23/2025 17:35 CLINICAL LABORATORY SCIENTIST HISTORY: cp, back pain,s ob COMPARISON: No comparisons available. TECHNIQUE: CTA examination is obtained with contrast CTA examination technique is performed with arterial phase of contrast-enhancement. 3-D reconstruction with thin MIP axial and MPR coronal imaging is provided Isovue 300, 92cc injected IV. One or more of the following dose reduction techniques were used: automated exposure control, adjustment of the mA and/or kV according to patient size, use of iterative reconstruction technique. FINDINGS: No significant coronary calcification is present ([id number]) LUNGS: Contrast bolus is adequate, artifact obscures evaluation of the left lower lobe and right lower lobe branches with areas of ill-defined density felt to represent artifact, there is no occlusive subsegmental pulmonary embolism identified. No tracheomalacia. No bronchiectasis. Minimal emphysematous changes. No significant pulmonary fibrotic changes. HEART AND PERICARDIUM: Within normal limits. AORTA: Normal caliber aorta.. PULMONARY ARTERIES: No pulmonary embolism ADENOPATHY/MEDIASTINUM: None. LIMITED VIEWS OF THE ABDOMEN: Within normal limits. OSSEOUS STRUCTURES: There are no sclerotic or lytic lesions appreciated. No acute rib fractures are identified. OVERLYING SOFT TISSUES: Unremarkable. THYROID: The thyroid is unremarkable. IMPRESSION: Limited study. No pulmonary embolism is identified. Mild probable CHF Reviewed, dictated and finalized at location P. ICAL LABORATORY SCIENTIST
[2025-06-23 15:16] VITALS: BP 166/75; PULSE 103; RESP 20; TEMP 36.4; O2SAT 99
--- NOTE | 2025-06-23 15:16 | ECG_ITS ---
Test Date: 2025-06-23 15:21:28 Measurements Intervals [place] Rate: 100 P: 36 TN: 166 QRS: -37 QRSD: 114 T: 59 QT: 334 QTc: 431 Interpretive Statements SINUS TACHYCARDIA LEFTWARD AXIS LOW QRS VOLTAGE IN PRECORDIAL LEADS INCOMPLETE RIGHT BUNDLE BRANCH BLOCK POSSIBLE ANTERIOR MYOCARDIAL INFARCTION , OF INDETERMINATE AGE Electronically Signed On 06-24-2025 05:50:11 INSPECTOR FILTER TIP by Geremias Dickinson D.O
--- NOTE | 2025-06-23 15:17 | ED.CHESTPAIN ---
HPI - Chest Pain General Chief Complaint: Chest Pain <MONICA Avelar Last Filed: 06/24/25 09:14> Stated Complaint: chest pain/sob <MONICA Avelar Last Filed: 06/24/25 09:14> Time Seen by Provider: 06/23/25 15:17 <MONICA Avelar Last Filed: 06/24/25 09:14> Focused HPI: This is a 54 year old male that presents to the ER for chest pain. Ongoing over the last couple of hours. Reports associated shortness of breath. Sent by his PCP for further evaluation. GENERAL: Well-appearing, well-nourished, and in no acute distress. HEAD: Normocephalic, atraumatic. CHEST: Clear to auscultation. ?No respiratory distress. HEART: Regular rate and rhythm.? NEURO: ?Alert and oriented x3. Patient screened in triage and initial orders placed.? ?Additional care and disposition to be based upon?diagnostic testing and treatment. <Corrie Oliver PA-C - Last Filed: 06/24/25 09:14> Focused HPI: This is a 54 year old male that presents to the ER for chest pain. Ongoing over the last couple of hours. Reports associated shortness of breath. Sent by his PCP for further evaluation. GENERAL: Well-appearing, well-nourished, and in no acute distress. HEAD: Normocephalic, atraumatic. CHEST: Clear to auscultation. ?No respiratory distress. HEART: Regular rate and rhythm.? NEURO: ?Alert and oriented x3. Patient screened in triage and initial orders placed.? ?Additional care and disposition to be based upon?diagnostic testing and treatment. <MONICA Ricci Last Filed: 06/24/25 00:01> Source: patient <MONICA Ricci Last Filed: 06/24/25 00:01> Mode of arrival: ambulatory <MONICA Ricci Last Filed: 06/24/25 00:01> Limitations: no limitations <MONICA Ricci Last Filed: 06/24/25 00:01> History of Present Illness HPI narrative: Upon my evaluation, patient reports having acute onset of shortness of breath last night around 8:00 p.m.. Feels as though he cannot take a deep breath. Reports pain with deep inspiration. Reports shortness of breath worse with lying flat and exertion. He does report having some pain in his midsternal chest radiating up into his anterior neck. Denies previous heart or lung problems. <Vy Balderas PA-C - Last Filed: 06/24/25 00:01> Related Data Home Medications: Home Medications ?Medication ?Instructions ?Recorded ?Confirmed ?Last Taken ?Type cholecalciferol (vitamin D3) 25 1,000 unit PO DAILY 06/11/19 06/23/25 12/10/24 History mcg (1,000 unit) capsule lactobacillus combination no.8 3 3,000 mmu cells PO DAILY 06/11/19 06/23/25 12/10/24 History billion cell capsule (Adult Probiotic) uiecafuq-ffvqhmed-pxttu acid 400 1 tablet PO DAILY 06/11/19 06/23/25 12/10/24 History mcg-vit K 20 mcg-lycop 300 mcg tablet (Men's Multivitamin) omega-3 fatty acids 1,000 mg 1,000 mg PO DAILY 06/11/19 06/23/25 12/10/24 History capsule (Fish Oil Concentrate) potassium gluconate 595 mg (99 mg) 595 mg PO DAILY 06/11/19 06/23/25 12/10/24 History tablet armodafinil 50 mg tablet 50 mg PO DAILY 11/27/24 06/23/25 12/10/24 History vitamin E 670 mg (1,000 unit) 670 mg PO DAILY 11/27/24 06/23/25 12/10/24 History capsule bupropion HCl 150 mg 24 hr tablet, 300 mg PO QAM 02/10/25 06/23/25 Unknown History extended release (Wellbutrin XL) psyllium husk 3.4 gram/5.4 gram 1 tbsp PO .every other day PRN 02/24/25 06/23/25 Unknown History oral powder (Metamucil) <Corrie Oliver PA-C - Last Filed: 06/24/25 09:14> Allergies/Adverse Reactions: Allergies Allergy/AdvReac Type Severity Reaction Status Date / Time No Known Allergies Allergy Verified 04/25/25 13:43 <Corrie Oliver PA-C - Last Filed: 06/24/25 09:14> Review of Systems Review of Systems: All systems reviewed & are unremarkable except as noted in HPI. <Vy Balderas PA-C - Last Filed: 06/24/25 00:01> All systems reviewed & are unremarkable except as noted in HPI and below <Vy Balderas PA-C - Last Filed: 06/24/25 00:01> [facility] [place] Past Medical History Medical History: Medical History Positive JULIEN (antinuclear antibody) Abnormal laboratory test result Hepatic steatosis Depression with anxiety Family history of diabetes mellitus Vitamin D deficiency Other testicular hypofunction Cholecystitis SHAY (obstructive sleep apnea) TMJ click Depression Heart murmur GERD (gastroesophageal reflux disease) <Corrie Oliver PA-C - Last Filed: 06/24/25 09:14> Surgical History Surgical History: Surgical History History of liver biopsy History of cholecystectomy <Corrie Oliver PA-C - Last Filed: 06/24/25 09:14> Family History Family History: Family History Sibling Diabetes mellitus Carcinoma of colon, Onset Age: 59 sister stage III Mother Cerebrovascular accident Father Family history of lung cancer <Corrie Oliver PA-C - Last Filed: 06/24/25 09:14> Social History Social History: Social History Smoking packs per day: 1 Smoking cigarettes per day: 20.0 Years smoked: 3 Smoking pack-years: 3.00 Smoking status: Former smoker Tobacco type: cigarettes Second hand tobacco smoke exposure: Yes Smoking end date: 07/31/09 Alcohol intake: current Drinks per week: 21 Alcohol use details: 3-4 beers daily Substance use: never Substance use type: does not use Other substance usage details: edibles occasionally to help with pain Lack of Transportation: No Lack of Food: Never True Current Housing: I Have Housing Concerned About Future Housing: No Difficulty Paying Gas/Electric Bills: No Difficulty Paying for Meds: No Currently Unemployed: No Education: Associate Degree Difficulty w/ Childcare or Family Care: No Living arrangements: with family Spiritual care concerns: No <MONICA Avelar Last Filed: 06/24/25 09:14> Exam Narrative: GENERAL: Well appearing, morbidly obese with BMI of 50.2, non-toxic, in no acute distress. HEAD: Normocephalic, atraumatic. RESPIRATORY: Airway patent, respirations nonlabored. Clear to auscultation bilaterally, no rales, rhonchi, wheezing. No focal lung sounds CARDIOVASCULAR: Regular rate and rhythm without murmurs, rubs, or gallops. ABDOMINAL: Soft, nontender, nondistended. Normoactive BS. MUSCULOSKELETAL: Moves all extremities. No gross deformities. No significant pitting edema. No calf tenderness. SKIN: Warm, dry, normal color. NEURO: A&O X3. Speech clear. Cranial nerves II-XII grossly intact. Steady gait. No ataxic movements. PSYCHIATRIC: Mildly anxious appearing. Normal interaction. <Vy Balderas PA-C - Last Filed: 06/24/25 00:01> Course Vital Signs Vital signs: Vital Signs Temperature 97.6 F 06/23/25 15:16 Pulse Rate 103 H 06/23/25 15:16 Respiratory Rate 20 06/23/25 15:16 Blood Pressure 166/75 H 06/23/25 15:16 Pulse Oximetry 99 06/23/25 15:16 Oxygen Delivery Room Air 06/23/25 15:16 Temperature 98.1 F 06/23/25 20:40 Pulse Rate 92 06/23/25 20:40 Respiratory Rate 18 06/23/25 20:40 Blood Pressure 171/88 H 06/23/25 20:40 Pulse Oximetry 93 06/23/25 20:40 Oxygen Delivery Room Air 06/23/25 17:19 <MONICA Avelar Last Filed: 06/24/25 09:14> Vital Signs Temperature 97.6 F 06/23/25 15:16 Pulse Rate 103 H 06/23/25 15:16 Respiratory Rate 20 06/23/25 15:16 Blood Pressure 166/75 H 06/23/25 15:16 Pulse Oximetry 99 06/23/25 15:16 Oxygen Delivery Room Air 06/23/25 15:16 Temperature 98.1 F 06/23/25 20:40 Pulse Rate 92 06/23/25 20:40 Respiratory Rate 18 06/23/25 20:40 Blood Pressure 171/88 H 06/23/25 20:40 Pulse Oximetry 93 06/23/25 20:40 Oxygen Delivery Room Air 06/23/25 17:19 <Vy Balderas PA-C - Last Filed: 06/24/25 00:01> MDM - Chest Pain MDM Narrative Medical decision making narrative: Patient presented to ED with shortness of breath, chest pain. Vital signs are stable upon arrival. Patient was borderline tachycardic upon arrival, however this was improved by the time of my evaluation. Oxygen stable on room air, 96 and above. EKG with sinus rhythm, incomplete right bundle, no significant concerning ST changes. Baseline troponin undetectable Basic laboratory studies fairly unremarkable. Minimal leukocytosis of 12.3. Stable electrolytes. Stable kidney function. Chest x-ray with cardiomegaly, otherwise clear CTA of chest was obtained and without evidence of PE, shows possible mild CHF. Patient denies previous history of CHF. BNP was obtained and within normal range at 66. 3 hour EKG without interval changes. 3 hour troponin also undetectable. Low suspicion for ACS at this time. HEART score 3 Patient was ambulated throughout the ED with pulse oximeter and SaO2 did not drop below 97%. Overall workup non revealing. Feel patient is safe for discharge home with close outpatient follow-up. He is comfortable with this plan. Advised to contact PCP tomorrow to make follow-up appointment. Given strict return precautions should chest pain or shortness of breath become worse. Patient voiced understanding. Discharged in stable condition. <Vy Balderas PA-C - Last Filed: 06/24/25 00:01> Medical Records Data Attestation: I reviewed the patient's medical records. <Vy Balderas PA-C - Last Filed: 06/24/25 00:01> Lab Data Attestation: I reviewed the patient's lab results. <Vy Balderas PA-C - Last Filed: 06/24/25 00:01> Result diagrams: 06/23/25 15:24 06/23/25 15:24 <Corrie Oliver PA-C - Last Filed: 06/24/25 09:14> Labs: Lab Results 06/23/25 06/23/25 Range/Units 15:24 18:17 WBC 12.3 H (4.5-10.0) K/mm3 RBC 4.84 (4.6-6.20) M/mm3 Hgb 14.8 (14.0-18.0) g/dL Hct 43.8 (42.0-52.0) % MCV 90.5 (80-100) fl MCH 30.6 (26-34) pg MCHC 33.8 (32-36) g/dl RDW 13.2 (11.5-14.5) % Plt Count 247 (150-375) k/mm3 MPV 9.4 (7.4-10.4) fl Immature Gran % (Auto) 0.4 (0-0.5) % Neut % (Auto) 68.7 (45.5-73.1) % Lymph % (Auto) 19.9 (18.3-44.2) % Garland % (Auto) 9.8 H (2.6-8.5) % Eos % (Auto) 0.8 (0-4.4) % Baso % (Auto) 0.4 (0.2-1.2) % Lymph # (Auto) 2.44 (0.9-3.2) K/mm3 Garland # (Auto) 1.2 H (0.1-0.6) K/mm3 Eos # (Auto) 0.1 (0-0.3) K/mm3 Baso # (Auto) 0.1 (0.0-0.1) K/mm3 Abs Immat Gran (auto) 0.05 H (0.00-0.031) K/mm3 Absolute Neuts (auto) 8.4 H (1.3-6.7) K/mm3 Absolute Nucleated RBC 0.000 (0.0-0.012) K/mm3 Nucleated RBC % 0.0 (0.0-0.2) % PT 13.3 (11.1-14.7) Seconds INR 1.0 APTT 29.6 (22.3-36.8) Seconds Sodium 138 (137-145) mmol/L Potassium 4.5 (3.4-5.0) mmol/L Chloride 104 (98-107) mmol/L Carbon Dioxide 27 (22-30) mmol/L Anion Gap 7 (4-12) mmol/L BUN 20 (9-20) mg/dL Creatinine 1.02 (0.7-1.3) mg/dL Estim Creat Clear Calc 119 ml/min Estimated GFR > 60 (59 - ) Glucose 96 (65-110) mg/dL Calcium 9.3 (8.4-10.2) mg/dL Magnesium 1.9 (1.6-2.3) mg/dL Total Bilirubin 0.5 (0.2-1.3) mg/dL AST 58 (17-59) U/L ALT 81 H (6-50) U/L Alkaline Phosphatase 90 (38-126) U/L Troponin I < 0.012 < 0.012 (0.000-0.034) ng/mL NT-Pro-B Natriuret Pep 66 (19.9-100) pg/mL Total Protein 8.4 H (6.3-8.2) g/dL Albumin 4.6 (3.5-5.1) g/dL Lipase 130 (23-300) U/L <Corrie Oliver PA-C - Last Filed: 06/24/25 09:14> Lab Results 06/23/25 06/23/25 Range/Units 15:24 18:17 WBC 12.3 H (4.5-10.0) K/mm3 RBC 4.84 (4.6-6.20) M/mm3 Hgb 14.8 (14.0-18.0) g/dL Hct 43.8 (42.0-52.0) % MCV 90.5 (80-100) fl MCH 30.6 (26-34) pg MCHC 33.8 (32-36) g/dl RDW 13.2 (11.5-14.5) % Plt Count 247 (150-375) k/mm3 MPV 9.4 (7.4-10.4) fl Immature Gran % (Auto) 0.4 (0-0.5) % Neut % (Auto) 68.7 (45.5-73.1) % Lymph % (Auto) 19.9 (18.3-44.2) % Garland % (Auto) 9.8 H (2.6-8.5) % Eos % (Auto) 0.8 (0-4.4) % Baso % (Auto) 0.4 (0.2-1.2) % Lymph # (Auto) 2.44 (0.9-3.2) K/mm3 Garland # (Auto) 1.2 H (0.1-0.6) K/mm3 Eos # (Auto) 0.1 (0-0.3) K/mm3 Baso # (Auto) 0.1 (0.0-0.1) K/mm3 Abs Immat Gran (auto) 0.05 H (0.00-0.031) K/mm3 Absolute Neuts (auto) 8.4 H (1.3-6.7) K/mm3 Absolute Nucleated RBC 0.000 (0.0-0.012) K/mm3 Nucleated RBC % 0.0 (0.0-0.2) % PT 13.3 (11.1-14.7) Seconds INR 1.0 APTT 29.6 (22.3-36.8) Seconds Sodium 138 (137-145) mmol/L Potassium 4.5 (3.4-5.0) mmol/L Chloride 104 (98-107) mmol/L Carbon Dioxide 27 (22-30) mmol/L Anion Gap 7 (4-12) mmol/L BUN 20 (9-20) mg/dL Creatinine 1.02 (0.7-1.3) mg/dL Estim Creat Clear Calc 119 ml/min Estimated GFR > 60 (59 - ) Glucose 96 (65-110) mg/dL Calcium 9.3 (8.4-10.2) mg/dL Magnesium 1.9 (1.6-2.3) mg/dL Total Bilirubin 0.5 (0.2-1.3) mg/dL AST 58 (17-59) U/L ALT 81 H (6-50) U/L Alkaline Phosphatase 90 (38-126) U/L Troponin I < 0.012 < 0.012 (0.000-0.034) ng/mL NT-Pro-B Natriuret Pep 66 (19.9-100) pg/mL Total Protein 8.4 H (6.3-8.2) g/dL Albumin 4.6 (3.5-5.1) g/dL Lipase 130 (23-300) U/L <Vy Balderas PA-C - Last Filed: 06/24/25 00:01> Imaging Data Attestation: I personally reviewed and interpreted this imaging study as follows: <Vy Balderas PA-C - Last Filed: 06/24/25 00:01> Radiologist's impression: ITS Impressions Chest X-Ray 06/23/25 15:35 IMPRESSION: Mild cardiomegaly. The prior study is 12 years old and did not show cardiomegaly, which would not be unusual. No acute findings. Chest CTA 06/23/25 17:49 IMPRESSION: Limited study. No pulmonary embolism is identified. Mild probable CHF <Vy Balderas PA-C - Last Filed: 06/24/25 00:01> ECG Data EKG #1: Attestation: I personally reviewed and interpreted this ECG as follows: <Vy Balderas PA-C - Last Filed: 06/24/25 00:01> ECG completion date: 06/23/25 <MONICA Ricci Last Filed: 06/24/25 00:01> ECG completion time: 15:21 <Vy Balderas PA-C - Last Filed: 06/24/25 00:01> EKG Interpretation: normal rate (100), sinus rhythm, non-specific ST changes and RBBB (incomplete) <MONICA Ricci Last Filed: 06/24/25 00:01> Discharge Plan Discharge Clinical Impression: Shortness of breath, Atypical chest pain <MONICA Avelar Last Filed: 06/24/25 09:14> Patient Disposition: Home <MONICA Avelar Last Filed: 06/24/25 09:14> Condition: Stable <MONICA Avelar Last Filed: 06/24/25 09:14> Instructions: Antibiotic Form, Chest Pain (ED), Dyspnea (ED), Shortness of Breath (ED) <Corrie Oliver PA-C - Last Filed: 06/24/25 09:14> Additional Instructions: Your work up here was reassuring. Continue to monitor symptoms. Recommend close follow-up with your primary care doctor for further evaluation. Return to the ED if you experience worsening or severe shortness of breath, worsening or severe chest pain. Increased swelling of legs, pain in legs, unable to keep down food or drink, coughing blood, persistent fevers, or any other symptoms of concern. <MONICA Avelar Last Filed: 06/24/25 09:14> Patient Language: Uzbek <Corrie Oliver PA-C - Last Filed: 06/24/25 09:14> Prescriptions: No Action bupropion HCl [Wellbutrin XL] 150 mg tablet extended release 24 hr 300 mg PO QAM Men's Multivitamin 400-20-300 mcg tablet 1 tablet PO DAILY potassium gluconate 595 mg (99 mg) tablet 595 mg PO DAILY cholecalciferol (vitamin D3) 1,000 unit capsule 1,000 unit PO DAILY Adult Probiotic 3 billion cell capsule 3,000 mmu cells PO DAILY omega-3 fatty acids [Fish Oil Concentrate] 1,000 mg capsule 1,000 mg PO DAILY Metamucil 3.4 gram/5.4 gram powder 1 tbsp PO .every other day PRN Rx Instructions: mix into at least 8 oz of water or juice before administering armodafinil 50 mg tablet 50 mg PO DAILY vitamin E 670 mg (1,000 unit) capsule 670 mg PO DAILY sertraline 100 mg tablet 200 mg PO DAILY Qty: 180 1RF <Corrie Oliver PA-C - Last Filed: 06/24/25 09:14> Follow-up/Referrals: Bala Avila DO [Primary Care Provider, Internal Medicine] <Corrie Oliver PA-C - Last Filed: 06/24/25 09:14> Time of Disposition: 20:27 <Corrie Oliver PA-C - Last Filed: 06/24/25 09:14> 20:27 <MONICA Ricci Last Filed: 06/24/25 00:01> Quality HEART score for chest pain patients History: slightly suspicious <MONICA Ricci Last Filed: 06/24/25 00:01> ECG: non specific repolarization disturbance/LBTB/PM <MONICA Ricci Last Filed: 06/24/25 00:01> Age: > 45 and < 65 years <Vy Balderas PA-C - Last Filed: 06/24/25 00:01> Risk factors: 1 or 2 risk factors <MONICA Ricci Last Filed: 06/24/25 00:01> Troponin: < or = to 1x normal limit <MONICA Ricci Last Filed: 06/24/25 00:01> Heart score: 3 <MONICA Avelar Last Filed: 06/24/25 09:14> 3 <MONICA Ricci Last Filed: 06/24/25 00:01>
[2025-06-23 15:30] LABS: Hematocrit 43.8 % (42.0-52.0); Hemoglobin 14.8 g/dL (14.0-18.0); Immature Granulocyte Percent A 0.4 % (0-0.5); Lymphocytes Absolute Auto 2.44 K/mm3 (0.9-3.2); Mean Corpuscular HGB Conc 33.8 g/dl (32-36); Mean Corpuscular Hemoglobin 30.6 pg (26-34); Mean Corpuscular Volume 90.5 fl (80-100); Nucleated Red Blood Cells Absolute Auto 0.000 K/mm3 (0.0-0.012); Nucleated Red Blood Cells Perc 0.0 % (0.0-0.2); Platelet Count Result 247 k/mm3 (150-375); Red Blood Count 4.84 M/mm3 (4.6-6.20); White Blood Count 12.3 K/mm3 (4.5-10.0)
[2025-06-23 15:42] LABS: INR 1.0; Prothrombin Time 13.3 Seconds (11.1-14.7)
[2025-06-23 15:43] LABS: Partial Thromboplastin Time 29.6 Seconds (22.3-36.8)
[2025-06-23 15:44] LABS: Alanine Aminotransferase 81 U/L (6-50); Albumin Level 4.6 g/dL (3.5-5.1); Alkaline Phosphatase 90 U/L (38-126); Anion Gap 7 mmol/L (4-12); Aspartate Amino Transferase 58 U/L (17-59); Bilirubin,Total 0.5 mg/dL (0.2-1.3); Blood Urea Nitrogen 20 mg/dL (9-20); Calcium 9.3 mg/dL (8.4-10.2); Carbon Dioxide 27 mmol/L (22-30); Chloride 104 mmol/L (98-107); Estimated CRCL calculation 119 ml/min; Estimated Glomerular Filt Rate > 60; Glucose 96 mg/dL (65-110); Lipase 130 U/L (23-300); Potassium 4.5 mmol/L (3.4-5.0); Sodium 138 mmol/L (137-145); Total Protein 8.4 g/dL (6.3-8.2)
[2025-06-23 15:55] LABS: Troponin I < 0.012 ng/mL (0.000-0.034)
[2025-06-23 17:16] VITALS: BP 159/74; PULSE 94; RESP 14; O2SAT 96
[2025-06-23] MEDS: ASPIRIN 81 MG CHEWABLE TABLET 324 MG PO (17:26)
--- NOTE | 2025-06-23 17:31 | PC.NURSE ---
CT notified that pt. is ready
[2025-06-23 17:46] VITALS: BP 163/71; PULSE 90; RESP 19; O2SAT 96
--- OUTSIDE RECORDS SUMMARY | 2025-06-23 17:51 | XMS_ITS | Clinical Summary ---
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
--- OUTSIDE RECORDS SUMMARY | 2025-06-23 18:40 | XMS_ITS | Clinical Summary ---
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
[2025-06-23 18:45] VITALS: PULSE 92; RESP 19; O2SAT 96
[2025-06-23 18:45] LABS: Magnesium 1.9 mg/dL (1.6-2.3); Troponin I < 0.012 ng/mL (0.000-0.034)
--- NOTE | 2025-06-23 18:45 | ECG_ITS ---
Test Date: 2025-06-23 18:48:22 Measurements Intervals Shepherd Rate: 89 P: 28 ME: 172 QRS: -33 QRSD: 109 T: 51 QT: 349 QTc: 427 Interpretive Statements SINUS RHYTHM LEFTWARD AXIS PATTERN CONSISTENT WITH PULMONARY DISEASE INCOMPLETE RIGHT BUNDLE BRANCH BLOCK VOLTAGE CRITERIA FOR LVH, CONSIDER NORMAL VARIANT Electronically Signed On 06-24-2025 05:52:22 RETORT COOLER by Geremias Dickinson D.O
[2025-06-23 18:55] LABS: NT Pro B Type Natriuretic Pept 66 pg/mL (19.9-100)
[2025-06-23 19:09] VITALS: PULSE 92; RESP 20; O2SAT 96
--- NOTE | 2025-06-23 19:22 | PC.NURSE ---
Walking pulse oximeter on RA 97%.
[2025-06-23 20:40] VITALS: BP 171/88; PULSE 92; RESP 18; TEMP 36.7; O2SAT 93
== END 2025-06-23 20:50 | disposition home or self-care (01) ==
PROVIDERS: Emergency Medicine; Emergency Provider Physician Assistant; PCP Internal Medicine
DX: R07.89 Other chest pain (principal); R06.02 Shortness of breath; I45.10 Unspecified right bundle-branch block; K76.0 Fatty (change of) liver, not elsewhere classified; G47.30 Sleep apnea, unspecified; F32.A Depression, unspecified; K21.9 Gastro-esophageal reflux disease without esophagitis; F41.9 Anxiety disorder, unspecified
CPT/HCPCS: 36415; 71046; 71275; 80053; 83690; 83735; 83880; 84484; 85025; 85610; 85730; 93005; 99284; A9270; Q9967